=== PATIENT | female | born 1935 | race Caucasian/White ===

== ENCOUNTER 2020-05-07 07:31 | Outpatient (REF) | payer MEDICARE, OTHER, SELFPAY ==
[2020-05-07 08:53] LABS: MANUAL DIFF FLAG NO
[2020-05-07 09:04] LABS: Basophils Absolute Auto 0.1 X10*3/uL (0.0-0.2); Basophils Percent Auto 0.7 % (0-2); Eosinophils Absolute Auto 0.1 X10*3/uL (0.0-0.4); Eosinophils Percent Auto 1.8 % (0-4); Hematocrit 41.1 % (37-47); Hemoglobin 13.2 g/dl (12.0-16.0); Imm Gran Abs Auto 0.02 X10*3/uL (0.00-0.03); Imm Gran Pct Auto 0.3 % (0.0-0.4); Lymphocytes Percent Auto 28.5 % (20-40); Mean Corpuscular HGB Conc 32.1 g/dl (31.0-35.0); Mean Corpuscular Hemoglobin 29.7 pg (27.0-33.0); Mean Corpuscular Volume 92.4 fL (80-98); Monocytes Absolute Auto 0.6 X10*3/uL (0.1-1.2); Neutrophils Absolute Auto 4.3 X10*3/uL (2.0-8.3); Neutrophils Percent Auto 60.7 % (45-73); Platelet Count 228 X10*3/uL (160-400); Red Blood Count 4.45 X10*6/uL (4.20-5.50); Red Cell Distribution Width 14.2 % (11.0-16.0); White Blood Count 7.2 X10*3/uL (4.8-10.8)
[2020-05-07 09:08] LABS: Glucose Urine UA NEG (NEG); Leukocyte Esterase Urine 1+ (NEG); Nitrite Urine NEG (NEG); Urine Blood TRACE (NEG); Urine Ketones NEG (NEG); Urine Protein NEG (NEG-TRACE)
[2020-05-07 09:11] LABS: Appearance Urine CLEAR; Color Urine YELLOW
[2020-05-07 09:25] LABS: Mucus Urine 1+ /LPF; Renal Epithelial Cells Urine 1+ /LPF; Squamous Epithelial Cell Urine 1+ /LPF; WBC Urine 0-2 /HPF (0-4)
[2020-05-07 09:35] LABS: Alanine Aminotransferase 12 U/L (0-31); Albumin Level 4.1 g/dL (3.5-5.0); Alkaline Phosphatase 113 U/L (39-117); Anion Gap 13 (12-20); Aspartate Amino Transferase 17 U/L (5-31); Bilirubin Total 0.6 mg/dL (0.0-1.0); Blood Urea Nitrogen 14 mg/dL (9-16); Calcium 8.7 mg/dL (8.4-10.2); Carbon Dioxide 28 mmol/L (22-29); Chloride 104 mmol/L (96-108); Cholesterol 180 mg/dL; Estimated Glomerular Filt Rate > 60; Glucose Fasting 84 mg/dL (60-99); HDL Cholesterol 53 mg/dL; LDL Cholesterol Calculated 96 mg/dl; Potassium 4.5 mmol/l (3.3-5.1); Sodium 140 mmol/L (135-145); Total Protein 6.8 g/dL (6.5-8.0); Triglycerides 155 mg/dL
[2020-05-07 09:57] LABS: Thyroid Stimulating Hormone 2.42 mIU/mL (0.32-4.0); Vitamin D 25-OH Total 48.8 ng/mL (>30)
== END 2020-05-07 07:32 | disposition home or self-care (01) ==
LOC: HO.LAB 07:31
PROVIDERS: PCP Internal Medicine; Visit Provider Internal Medicine
DX: E78.1 Pure hyperglyceridemia (principal); R35.1 Nocturia; Z85.3 Personal history of malignant neoplasm of breast; E55.9 Vitamin D deficiency, unspecified
CPT/HCPCS: 36415; 80053; 80061; 81001; 81003; 82306; 84443; 85025

== ENCOUNTER 2020-07-20 09:00 | Outpatient (RCR) | payer MEDICARE, OTHER, SELFPAY | END 2020-10-08 15:20 | disposition other institution (70) | LOC: HO.PT 09:00 | PROVIDERS: PCP Internal Medicine; Visit Provider Internal Medicine | DX: H81.10 Benign paroxysmal vertigo, unspecified ear (principal) | CPT/HCPCS: 95992; 97110; 97112; 97162; 97535 ==

== ENCOUNTER → 2020-08-02 08:45 | Outpatient (BNV) | payer MEDICARE, OTHER, SELFPAY | PROVIDERS: PCP Internal Medicine; Visit Provider Internal Medicine Medical Oncology | DX: D05.11 Intraductal carcinoma in situ of right breast (principal) | CPT/HCPCS: 99212; 99213; 99214 ==

== ENCOUNTER 2020-08-02 14:56 | Outpatient (REF) | payer MEDICARE, OTHER, SELFPAY ==
--- NOTE | 2020-08-02 15:03 | US_ITS ---
EXAMINATION: US ABDOMEN COMPLETE CLINICAL INFORMATION: Right upper quadrant pain. COMPARISON: CT abdomen and pelvis 10/09/2019 TECHNIQUE: Real-time imaging of the abdominal viscera. FINDINGS: PANCREAS: Normal. ABDOMINAL AORTA: Proximal and mid abdominal aorta are normal in caliber. The distal abdominal aorta is not well visualized due to bowel gas. INFERIOR VENA CAVA: Visualized portions are normal. LIVER: The liver is normal in size and echotexture. There is a 2.7 x 1.5 x 2.4 cm complex cyst in the right lobe of the liver with multiple septations. This does not appear appreciably changed in size from previous CT scan. No other focal liver lesion is seen. There is no biliary duct dilatation. GALLBLADDER: Normal. The gallbladder is physiologically distended without evidence of stones, sludge, polyps, wall thickening or pericholecystic fluid. COMMON BILE DUCT: Normal in caliber measuring 0.43 cm in diameter. RIGHT KIDNEY: There is mild fullness of the right renal pelvis. No definite hydronephrosis. No renal calculi or focal parenchymal lesions. The kidney measures 10.9 cm in maximum dimension. LEFT KIDNEY: Normal. No hydronephrosis. No renal calculi or focal parenchymal lesions. The kidney measures 10.3 cm in maximum dimension. SPLEEN: There is a small minimally complex cyst with single thin septation measuring 1.4 x 1.5 x 1.5 cm. This is similar to previous CT scan. The spleen measures 8.6 cm in maximum dimension. FREE FLUID: None. US/US abdomen complete IMPRESSION: Stable complex cysts in the liver and spleen. Normal-appearing gallbladder. Limited visualization of the distal abdominal aorta.
== END 2020-08-02 14:57 | disposition home or self-care (01) ==
LOC: HO.US 14:56
PROVIDERS: PCP Internal Medicine; Visit Provider Internal Medicine Medical Oncology
DX: R10.11 Right upper quadrant pain (principal)
CPT/HCPCS: 76700

== ENCOUNTER 2020-09-10 13:36 | Outpatient (REF) | payer MEDICARE, OTHER, SELFPAY ==
--- NOTE | ~2020-09-10 | MM_ITS ---
EXAMINATION: MM DIAGNOSTIC DIGITAL BREAST TOMOSYNTHESIS, LEFT CLINICAL INFORMATION: The probable benign calcifications upper left breast just medial to midline for follow-up. Prior history contralateral right breast cancer 2012. COMPARISON: Mammography: 03/10/2020, 02/26/2020 (BI-RADS 0), 11/26/2018 TECHNIQUE: Digital breast tomosynthesis is performed in both the craniocaudal and mediolateral oblique views along with computer-aided detection (CAD). Synthesized 2D images are generated from the tomosynthesis. Magnification CC, magnification LM FINDINGS: The breasts are heterogeneously dense, which may obscure small masses (ACR BI-RADS breast composition Category c). There is no developing density or interval mass or architectural abnormality. There are scattered round calcifications again seen, some loosely grouped mid 11:00 position. No definite layering noted on current study. There is no increasing calcifications or interval pleomorphic types or ductal distribution. Results are provided to the patient at time of visit by the technologist. MM/MM tomosynthesis diagnostic LT IMPRESSION: Probable benign left breast calcifications stable from prior diagnostic exam. ASSESSMENT: BI-RADS 3: Probably Benign RECOMMENDATION: Diagnostic mammography at time of annual bilateral exam, due in 6 months. This patient's information was entered into a reminder system with a target due date for their next mammogram.
== END 2020-09-10 13:37 | disposition home or self-care (01) ==
LOC: HO.MAMMO 13:36
PROVIDERS: Absent Provider Internal Medicine Medical Oncology; PCP Internal Medicine; Visit Provider Surgery
DX: D05.11 Intraductal carcinoma in situ of right breast (principal)
CPT/HCPCS: 77061; 77065

== ENCOUNTER 2020-09-16 08:05 | Outpatient (REF) | payer MEDICARE, OTHER, SELFPAY ==
--- NOTE | ~2020-09-16 | XR_ITS ---
EXAMINATION: XR PELVIS CLINICAL INFORMATION: Hip pain COMPARISON: Pelvis and right hip radiographs 12/31/2019. TECHNIQUE: AP x2 views of the pelvis are obtained along with lateral view right hip. FINDINGS: There is a right hip prosthesis. Hardware is intact. There is no destructive process or osteolysis. The left hip narrowing medial aspect with mild subchondral sclerosis and acetabular spurring similar to prior exam. There is mild bilateral greater trochanter scarring. The SI joints and pubis show no diastases. There are degenerative changes lower lumbar spine. There is likely chronic calcified granuloma overlying right pelvis similar to prior imaging. XR/XR pelvis 1-2V IMPRESSION: 1. Right hip prosthesis. No osteolysis. 2. Degenerative changes left hip similar to prior exam 2019. 3. Degenerative changes lower lumbar spine.
== END 2020-09-16 08:06 | disposition home or self-care (01) ==
LOC: HO.HOSX 08:05
PROVIDERS: Visit Provider Orthopaedic Surgery
DX: Z47.1 Aftercare following joint replacement surgery (principal); Z96.641 Presence of right artificial hip joint
CPT/HCPCS: 72170; 99212

== ENCOUNTER → 2020-09-29 15:18 | Outpatient (BNVA) | payer MEDICARE, OTHER, SELFPAY | PROVIDERS: PCP Internal Medicine; Visit Provider Surgery | DX: R92.1 Mammographic calcification found on diagnostic imaging of breast (principal); Z85.3 Personal history of malignant neoplasm of breast | CPT/HCPCS: 99212 ==

== ENCOUNTER 2020-12-14 07:41 | Outpatient (REF) | payer MEDICARE, OTHER, SELFPAY ==
[2020-12-14 09:31] LABS: MANUAL DIFF FLAG NO
[2020-12-14 09:40] LABS: Basophils Absolute Auto 0.1 X10*3/uL (0.0-0.2); Eosinophils Absolute Auto 0.1 X10*3/uL (0.0-0.4); Eosinophils Percent Auto 1.6 % (0-4); Hematocrit 43.1 % (37-47); Hemoglobin 13.9 g/dl (12.0-16.0); Imm Gran Abs Auto 0.01 X10*3/uL (0.00-0.03); Imm Gran Pct Auto 0.2 % (0.0-0.4); Lymphocytes Absolute Auto 1.9 X10*3/uL (1.2-4.9); Lymphocytes Percent Auto 31.5 % (20-40); Mean Corpuscular HGB Conc 32.3 g/dl (31.0-35.0); Mean Corpuscular Hemoglobin 30.4 pg (27.0-33.0); Mean Corpuscular Volume 94.3 fL (80-98); Mean Platelet Volume 10.2 fL (9.4-12.3); Monocytes Absolute Auto 0.5 X10*3/uL (0.1-1.2); Monocytes Percent Auto 8.2 % (2-11); Neutrophils Absolute Auto 3.5 X10*3/uL (2.0-8.3); Neutrophils Percent Auto 57.5 % (45-73); Platelet Count 248 X10*3/uL (160-400); Red Blood Count 4.57 X10*6/uL (4.20-5.50); Red Cell Distribution Width 14.1 % (11.0-16.0); White Blood Count 6.1 X10*3/uL (4.8-10.8)
[2020-12-14 09:49] LABS: Estimated Average Glucose 111 mg/dL; Hemoglobin A1c % 5.5 %
[2020-12-14 10:04] LABS: Alanine Aminotransferase 14 U/L (0-31); Albumin Level 4.3 g/dL (3.5-5.0); Alkaline Phosphatase 120 U/L (39-117); Anion Gap 13 (12-20); Aspartate Amino Transferase 20 U/L (5-31); Bilirubin Total 0.9 mg/dL (0.0-1.0); Blood Urea Nitrogen 15 mg/dL (9-16); Calcium 9.2 mg/dL (8.4-10.2); Carbon Dioxide 29 mmol/L (22-29); Chloride 106 mmol/L (96-108); Cholesterol 200 mg/dL; Estimated Glomerular Filt Rate > 60; Glucose Fasting 85 mg/dL (60-99); HDL Cholesterol 58 mg/dL; LDL Cholesterol Calculated 110 mg/dl; Potassium 4.8 mmol/L (3.3-5.1); Sodium 143 mmol/L (135-145); Total Protein 7.2 g/dL (6.5-8.0); Triglycerides 162 mg/dL
[2020-12-14 10:13] LABS: Thyroid Stimulating Hormone 2.15 uIU/mL (0.32-4.0)
[2020-12-14 11:50] LABS: Vitamin B12 458 pg/mL (200-900)
== END 2020-12-14 07:42 | disposition home or self-care (01) ==
LOC: HO.LAB 07:41
PROVIDERS: PCP Internal Medicine; Visit Provider Internal Medicine
DX: J44.9 Chronic obstructive pulmonary disease, unspecified (principal); R20.0 Anesthesia of skin; Z85.3 Personal history of malignant neoplasm of breast
CPT/HCPCS: 36415; 80053; 80061; 82607; 83036; 84443; 85025

== ENCOUNTER 2021-03-10 13:10 | Outpatient (REF) | payer MEDICARE, OTHER, SELFPAY ==
--- NOTE | ~2021-03-10 | MM_ITS ---
EXAMINATION: MM DIAGNOSTIC DIGITAL BREAST TOMOSYNTHESIS, BILATERAL CLINICAL INFORMATION: Left breast calcifications. Right breast screening study. 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 COMPARISON: Mammography: 09/10/2020, 03/10/2020, and studies dating back to 03/05/2014. TECHNIQUE: Digital breast tomosynthesis is performed in both the craniocaudal and mediolateral oblique views along with computer-aided detection (CAD). Synthesized 2D images are generated from the tomosynthesis. Additional spot magnification views of the left breast in craniocaudal and 90 degree mediolateral views performed. FINDINGS: The breasts are heterogeneously dense, which may obscure small masses (ACR BI-RADS breast composition Category c). There is multiplicity and bilaterality of calcifications. The grouping of calcifications in the central aspect of the left breast is seen to be essentially stable. No new abnormal dominant mass or suspicious grouping of calcifications is identified. Recommend 12 month diagnostic study to include spot magnification views of the left breast. Results are provided to the patient at time of visit by the technologist. MM/MM tomosynthesis diagnostic BI IMPRESSION: There are no significant changes from prior study. ASSESSMENT: BI-RADS 3: Probably Benign RECOMMENDATION: Diagnostic mammography at time of next annual exam, due in 12 months. This patient's information was entered into a reminder system with a target due date for their next mammogram.
== END 2021-03-10 13:11 | disposition home or self-care (01) ==
LOC: HO.MAMMO 13:10
PROVIDERS: Visit Provider Internal Medicine
DX: R92.1 Mammographic calcification found on diagnostic imaging of breast (principal); Z86.000 Personal history of in-situ neoplasm of breast
CPT/HCPCS: 77062; 77066

== ENCOUNTER 2021-04-26 07:32 | Outpatient (REF) | payer MEDICARE, OTHER, SELFPAY ==
[2021-04-26 07:47] LABS: MANUAL DIFF FLAG NO
[2021-04-26 07:54] LABS: Basophils Percent Auto 0.6 % (0-2); Eosinophils Absolute Auto 0.1 X10*3/uL (0.0-0.4); Eosinophils Percent Auto 1.8 % (0-4); Hemoglobin 13.9 g/dl (12.0-16.0); Imm Gran Abs Auto 0.02 X10*3/uL (0.00-0.03); Imm Gran Pct Auto 0.3 % (0.0-0.4); Lymphocytes Absolute Auto 2.1 X10*3/uL (1.2-4.9); Lymphocytes Percent Auto 30.5 % (20-40); Mean Corpuscular HGB Conc 33.1 g/dl (31.0-35.0); Mean Corpuscular Volume 93.5 fL (80-98); Mean Platelet Volume 9.4 fL (9.4-12.3); Monocytes Absolute Auto 0.5 X10*3/uL (0.1-1.2); Monocytes Percent Auto 7.5 % (2-11); Neutrophils Absolute Auto 4.1 X10*3/uL (2.0-8.3); Neutrophils Percent Auto 59.3 % (45-73); Platelet Count 219 X10*3/uL (160-400); Red Blood Count 4.49 X10*6/uL (4.20-5.50); Red Cell Distribution Width 13.5 % (11.0-16.0); White Blood Count 6.8 X10*3/uL (4.8-10.8)
[2021-04-26 08:25] LABS: Alanine Aminotransferase 15 U/L (0-31); Albumin Level 4.3 g/dL (3.5-5.0); Alkaline Phosphatase 120 U/L (39-117); Anion Gap 11 (12-20); Aspartate Amino Transferase 20 U/L (5-31); Bilirubin Total 0.8 mg/dL (0.0-1.0); Blood Urea Nitrogen 12 mg/dL (9-16); Calcium 9.2 mg/dL (8.4-10.2); Carbon Dioxide 29 mmol/L (22-29); Chloride 107 mmol/L (96-108); Cholesterol 220 mg/dL; Estimated Glomerular Filt Rate > 60; Glucose Fasting 92 mg/dL (60-99); HDL Cholesterol 62 mg/dL; LDL Cholesterol Calculated 125 mg/dl; Potassium 4.6 mmol/L (3.3-5.1); Sodium 142 mmol/L (135-145); Total Protein 7.2 g/dL (6.5-8.0); Triglycerides 168 mg/dL
[2021-04-26 08:44] LABS: Thyroid Stimulating Hormone 3.02 uIU/mL (0.32-4.0)
== END 2021-04-26 07:33 | disposition home or self-care (01) ==
LOC: HO.LAB 07:32
PROVIDERS: PCP Internal Medicine; Visit Provider Internal Medicine
DX: J44.9 Chronic obstructive pulmonary disease, unspecified (principal); M89.49 Other hypertrophic osteoarthropathy, multiple sites; Z85.3 Personal history of malignant neoplasm of breast
CPT/HCPCS: 36415; 80053; 80061; 84443; 85025

== ENCOUNTER 2021-06-16 13:26 | Outpatient (REF) | payer MEDICARE, OTHER, SELFPAY ==
[2021-06-16 13:47] LABS: MANUAL DIFF FLAG NO
[2021-06-16 14:00] LABS: Basophils Percent Auto 0.5 % (0-2); Eosinophils Absolute Auto 0.1 X10*3/uL (0.0-0.4); Eosinophils Percent Auto 0.6 % (0-4); Hematocrit 42.1 % (37.0-47.0); Hemoglobin 13.7 g/dl (12.0-16.0); Imm Gran Abs Auto 0.01 X10*3/uL (0.00-0.03); Imm Gran Pct Auto 0.1 % (0.0-0.4); Lymphocytes Percent Auto 25.7 % (20-40); Mean Corpuscular HGB Conc 32.5 g/dl (31.0-35.0); Mean Corpuscular Hemoglobin 30.3 pg (27.0-33.0); Mean Corpuscular Volume 93.1 fL (80.0-98.0); Mean Platelet Volume 9.6 fL (9.4-12.3); Monocytes Absolute Auto 0.5 X10*3/uL (0.1-1.2); Monocytes Percent Auto 6.3 % (2-11); Neutrophils Absolute Auto 5.2 x10*3/uL (2.0-8.3); Neutrophils Percent Auto 66.8 % (45-73); Platelet Count 223 X10*3/uL (160-400); Red Blood Count 4.52 X10*6/uL (4.20-5.50); Red Cell Distribution Width 13.5 % (11.0-16.0); White Blood Count 7.8 X10*3/uL (4.8-10.8)
[2021-06-16 14:30] LABS: Alanine Aminotransferase 18 U/L (0-31); Albumin Level 4.2 g/dL (3.5-5.0); Alkaline Phosphatase 117 U/L (39-117); Anion Gap 11 (12-20); Aspartate Amino Transferase 23 U/L (5-31); Bilirubin Total 0.6 mg/dL (0.0-1.0); Blood Urea Nitrogen 16 mg/dL (9-16); Calcium 9.2 mg/dL (8.4-10.2); Carbon Dioxide 29 mmol/L (22-29); Chloride 105 mmol/L (96-108); Cholesterol 210 mg/dL; Estimated Glomerular Filt Rate 58; Glucose Random 177 mg/dL (60-115); HDL Cholesterol 52 mg/dL; LDL Cholesterol Calculated 123 mg/dl; Potassium 4.5 mmol/L (3.3-5.1); Sodium 140 mmol/L (135-145); Total Protein 7.1 g/dL (6.5-8.0); Triglycerides 178 mg/dL
[2021-06-16 14:45] LABS: Thyroid Stimulating Hormone 1.89 uIU/mL (0.32-4.0); Vitamin D 25-OH Total 35.2 ng/mL (>30)
[2021-06-16 14:54] LABS: Vitamin B12 422 pg/mL (200-900)
== END 2021-06-16 13:27 | disposition home or self-care (01) ==
LOC: HO.LAB 13:26
PROVIDERS: PCP Internal Medicine; Visit Provider Internal Medicine
DX: M89.49 Other hypertrophic osteoarthropathy, multiple sites (principal); E78.2 Mixed hyperlipidemia; R41.3 Other amnesia; E55.9 Vitamin D deficiency, unspecified
CPT/HCPCS: 36415; 80053; 80061; 82306; 82607; 84443; 85025

== ENCOUNTER 2021-06-28 08:30 | Outpatient (REF) | payer MEDICARE, OTHER, SELFPAY ==
[2021-06-28 09:33] LABS: Estimated Average Glucose 111 mg/dL; Hemoglobin A1c % 5.5 %
[2021-06-28 09:54] LABS: Glucose Fasting 91 mg/dL (60-99)
== END 2021-06-28 08:31 | disposition home or self-care (01) ==
LOC: HO.LAB 08:30
PROVIDERS: PCP Internal Medicine; Visit Provider Internal Medicine
DX: R73.01 Impaired fasting glucose (principal)
CPT/HCPCS: 36415; 82947; 83036

== ENCOUNTER → 2021-10-04 08:39 | Outpatient (BNVA) | payer MEDICARE, OTHER, SELFPAY | PROVIDERS: PCP Internal Medicine; Visit Provider Surgery | DX: Z85.3 Personal history of malignant neoplasm of breast (principal) | CPT/HCPCS: 99212 ==

== ENCOUNTER 2021-12-19 09:58 | Outpatient (REF) | payer MEDICARE, OTHER, SELFPAY ==
[2021-12-19 11:30] LABS: Appearance Urine CLEAR; Color Urine STRAW; Glucose Urine UA NEG (NEG); Leukocyte Esterase Urine 1+ (NEG); Nitrite Urine NEG (NEG); Urine Blood NEG (NEG); Urine Ketones NEG (NEG); Urine Protein NEG (NEG-TRACE)
[2021-12-19 11:49] LABS: Vitamin B12 453 pg/mL (200-900)
[2021-12-19 11:51] LABS: Alanine Aminotransferase 20 U/L (0-31); Albumin Level 4.3 g/dL (3.5-5.0); Alkaline Phosphatase 109 U/L (39-117); Anion Gap 11 (12-20); Aspartate Amino Transferase 22 U/L (5-31); Bilirubin Total 0.4 mg/dL (0.0-1.0); Blood Urea Nitrogen 17 mg/dL (9-16); Calcium 9.9 mg/dL (8.4-10.2); Carbon Dioxide 29 mmol/L (22-29); Chloride 105 mmol/L (96-108); Estimated Glomerular Filt Rate > 60; Glucose Random 89 mg/dL (60-115); Potassium 4.9 mmol/L (3.3-5.1); Sodium 140 mmol/L (135-145); Total Protein 7.2 g/dL (6.5-8.0)
[2021-12-19 11:54] LABS: RBC Urine 0 /HPF (0); Squamous Epithelial Cell Urine 2+ /LPF
[2021-12-19 11:59] LABS: Free T4 (Free Thyroxine) 0.98 ng/dL (0.71-1.85)
== END 2021-12-19 09:59 | disposition home or self-care (01) ==
LOC: HO.LAB 09:58
PROVIDERS: PCP Internal Medicine; Visit Provider Internal Medicine
DX: R20.0 Anesthesia of skin (principal); R20.2 Paresthesia of skin; J44.9 Chronic obstructive pulmonary disease, unspecified; R41.3 Other amnesia; E78.2 Mixed hyperlipidemia; R35.1 Nocturia
CPT/HCPCS: 36415; 80053; 81001; 82607; 84439

== ENCOUNTER 2022-03-10 12:08 | Outpatient (REF) | payer MEDICARE, OTHER, SELFPAY ==
--- NOTE | ~2022-03-10 | MM_ITS ---
EXAMINATION: MM DIAGNOSTIC DIGITAL MAMMOGRAPHY, BILATERAL CLINICAL INFORMATION: Due for yearly. Also follow-up probable benign left breast calcifications mid upper breast. Previous history DCIS right breast status post lumpectomy, 2012 COMPARISON: Mammography: 03/10/2021, 09/10/2020, 03/10/2020, 02/26/2020 (BI-RADS 0), 11/26/2018 TECHNIQUE: Digital mammography is performed in craniocaudal and mediolateral oblique views along with computer-aided detection (CAD). Additional magnification left CC x2 and magnification left ML x2 views are obtained. FINDINGS: The breasts are heterogeneously dense, which may obscure small masses (ACR BI-RADS breast composition Category c). Breast tissue composition borders on extremely dense in the anterior breasts. Parenchymal pattern is similar to prior studies. No developing density or interval mass or architectural abnormality. There are scattered bilateral round, coarse, and ductal secretory calcifications again seen. The calcifications mid upper left breast for follow-up appear stable from prior studies and likely diagnostic studies and without significant change from 2019. There are considered to be benign. Results are provided to the patient at time of visit by the technologist. MM/MM diagnostic mammo BI IMPRESSION: -No mammographic evidence of malignancy. -Left breast calcifications for follow-up are stable from prior exams and now considered to be benign. ASSESSMENT: BI-RADS 2: Benign RECOMMENDATION: Routine annual mammography screening. This patient's information was entered into a reminder system with a target due date for their next mammogram.
== END 2022-03-10 12:09 | disposition home or self-care (01) ==
LOC: HO.MAMMO 12:08
PROVIDERS: PCP Internal Medicine; Visit Provider Internal Medicine
DX: R92.1 Mammographic calcification found on diagnostic imaging of breast (principal)
CPT/HCPCS: 77062; 77066

== ENCOUNTER 2022-06-12 11:24 | Outpatient (REF) | payer MEDICARE, OTHER, SELFPAY ==
--- NOTE | ~2022-06-12 | XR_ITS ---
EXAMINATION: XR LUMBOSACRAL SPINE CLINICAL INFORMATION: Low back pain. COMPARISON: CT abdomen and pelvis 10/09/2019. TECHNIQUE: Three views of the lumbosacral spine. FINDINGS: Mild degenerative changes are present throughout the spine. Disc space narrowing is most marked at L2-L3 and L4-L5. There is grade 1 anterolisthesis of L4 upon L5. When comparison is made to the 10/09/2019 exam, there's been no significant interval change in appearances. No bony destructive lesions are seen. XR/XR lumbar spine 2-3V IMPRESSION: Degenerative changes in the spine with grade 1 anterolisthesis L4 upon L5.
[2022-06-12 11:58] LABS: MANUAL DIFF FLAG NO
[2022-06-12 12:24] LABS: Basophils Absolute Auto 0.1 X10*3/uL (0.0-0.2); Basophils Percent Auto 0.6 % (0-2); Eosinophils Percent Auto 0.5 % (0-4); Hematocrit 43.4 % (37.0-47.0); Hemoglobin 14.4 g/dl (12.0-16.0); Imm Gran Abs Auto 0.03 X10*3/uL (0.00-0.03); Imm Gran Pct Auto 0.4 % (0.0-0.4); Mean Corpuscular HGB Conc 33.2 g/dl (31.0-35.0); Mean Corpuscular Hemoglobin 31.4 pg (27.0-33.0); Mean Corpuscular Volume 94.8 fL (80.0-98.0); Mean Platelet Volume 10.2 fL (9.4-12.3); Monocytes Absolute Auto 0.5 X10*3/uL (0.1-1.2); Monocytes Percent Auto 6.1 % (2-11); Neutrophils Absolute Auto 5.6 x10*3/uL (2.0-8.3); Neutrophils Percent Auto 68.4 % (45-73); Platelet Count 234 X10*3/uL (160-400); Red Blood Count 4.58 X10*6/uL (4.20-5.50); Red Cell Distribution Width 13.4 % (11.0-16.0); White Blood Count 8.2 X10*3/uL (4.8-10.8)
[2022-06-12 12:56] LABS: Alanine Aminotransferase 20 U/L (0-31); Albumin Level 4.6 g/dL (3.5-5.0); Alkaline Phosphatase 101 U/L (39-117); Anion Gap 16 (12-20); Aspartate Amino Transferase 26 U/L (5-31); Bilirubin Total 0.5 mg/dL (0.0-1.0); Blood Urea Nitrogen 15 mg/dL (9-16); Calcium 9.8 mg/dL (8.4-10.2); Carbon Dioxide 26 mmol/L (22-29); Chloride 104 mmol/L (96-108); Cholesterol 205 mg/dL; Estimated Glomerular Filt Rate > 60; Glucose Random 94 mg/dL (60-115); HDL Cholesterol 65 mg/dL; LDL Cholesterol Calculated 113 mg/dl; Potassium 4.6 mmol/L (3.3-5.1); Sodium 141 mmol/L (135-145); Total Protein 7.5 g/dL (6.5-8.0); Triglycerides 137 mg/dL
[2022-06-12 13:19] LABS: Thyroid Stimulating Hormone 1.84 uIU/mL (0.32-4.0)
== END 2022-06-12 11:25 | disposition home or self-care (01) ==
LOC: HO.XRAY 11:24
PROVIDERS: PCP Internal Medicine; Visit Provider Internal Medicine
DX: G30.0 Alzheimer's disease with early onset (principal); F02.A0 Dementia in other diseases classified elsewhere, mild, without behavioral disturbance, psychotic disturbance, mood disturbance, and anxiety; E78.00 Pure hypercholesterolemia, unspecified; J44.9 Chronic obstructive pulmonary disease, unspecified; G62.9 Polyneuropathy, unspecified; M54.50 Low back pain, unspecified
CPT/HCPCS: 36415; 72100; 80053; 80061; 84443; 85025

== ENCOUNTER → 2022-10-03 08:54 | Outpatient (BNVA) | payer MEDICARE, OTHER, SELFPAY | PROVIDERS: PCP Internal Medicine; Referring Provider Internal Medicine; Visit Provider Surgery | DX: D05.11 Intraductal carcinoma in situ of right breast (principal) | CPT/HCPCS: 99212 ==

== ENCOUNTER 2022-12-21 06:48 | Outpatient (REF) | payer MEDICARE, OTHER, SELFPAY ==
[2022-12-21 07:10] LABS: MANUAL DIFF FLAG NO
[2022-12-21 07:57] LABS: Basophils Absolute Auto 0.1 X10*3/uL (0.0-0.2); Basophils Percent Auto 0.8 % (0-2); Eosinophils Absolute Auto 0.1 X10*3/uL (0.0-0.4); Eosinophils Percent Auto 1.8 % (0-4); Hemoglobin 14.7 g/dl (12.0-16.0); Imm Gran Abs Auto 0.01 X10*3/uL (0.00-0.03); Imm Gran Pct Auto 0.2 % (0.0-0.4); Lymphocytes Absolute Auto 2.1 X10*3/uL (1.2-4.9); Lymphocytes Percent Auto 32.1 % (20-40); Mean Corpuscular Hemoglobin 30.2 pg (27.0-33.0); Mean Corpuscular Volume 94.7 fL (80.0-98.0); Mean Platelet Volume 10.5 fL (9.4-12.3); Monocytes Absolute Auto 0.5 X10*3/uL (0.1-1.2); Monocytes Percent Auto 7.1 % (2-11); Neutrophils Absolute Auto 3.9 x10*3/uL (2.0-8.3); Platelet Count 227 X10*3/uL (160-400); Red Blood Count 4.86 X10*6/uL (4.20-5.50); Red Cell Distribution Width 13.7 % (11.0-16.0); White Blood Count 6.7 X10*3/uL (4.8-10.8)
[2022-12-21 08:10] LABS: Estimated Average Glucose 108 mg/dL; Hemoglobin A1c % 5.4 %
[2022-12-21 08:32] LABS: Alanine Aminotransferase 20 U/L (0-31); Albumin Level 4.4 g/dL (3.5-5.0); Alkaline Phosphatase 105 U/L (39-117); Anion Gap 14 (12-20); Aspartate Amino Transferase 24 U/L (5-31); Blood Urea Nitrogen 15 mg/dL (9-16); Calcium 9.7 mg/dL (8.4-10.2); Carbon Dioxide 29 mmol/L (22-29); Chloride 106 mmol/L (96-108); Cholesterol 207 mg/dL; Estimated Glomerular Filt Rate 59; Glucose Random 93 mg/dL (60-115); HDL Cholesterol 66 mg/dL; LDL Cholesterol Calculated 112 mg/dl; Potassium 4.4 mmol/L (3.3-5.1); Sodium 145 mmol/L (135-145); Total Protein 7.2 g/dL (6.5-8.0); Triglycerides 148 mg/dL
[2022-12-21 08:57] LABS: Thyroid Stimulating Hormone 3.03 uIU/mL (0.32-4.0); Vitamin B12 644 pg/mL (200-900)
== END 2022-12-21 06:49 | disposition home or self-care (01) ==
LOC: HO.LAB 06:48
PROVIDERS: PCP Internal Medicine; Visit Provider Internal Medicine
DX: F03.B0 Unspecified dementia, moderate, without behavioral disturbance, psychotic disturbance, mood disturbance, and anxiety (principal); E78.00 Pure hypercholesterolemia, unspecified; R73.01 Impaired fasting glucose; J44.9 Chronic obstructive pulmonary disease, unspecified
CPT/HCPCS: 36415; 80053; 80061; 82607; 83036; 84439; 84443; 85025

== ENCOUNTER 2023-03-13 08:26 | Outpatient (REF) | payer MEDICARE, OTHER, SELFPAY ==
--- NOTE | ~2023-03-13 | MM_ITS ---
EXAMINATION: MM SCREENING DIGITAL BREAST TOMOSYNTHESIS, BILATERAL CLINICAL INFORMATION: Screening. Asymptomatic. COMPARISON: Mammography: This study is compared with prior exams dating back to TECHNIQUE: Digital breast tomosynthesis is performed in both the craniocaudal and mediolateral oblique views along with computer-aided detection (CAD). Synthesized 2D images are generated from the tomosynthesis. FINDINGS: The breasts are heterogeneously dense, which may obscure small masses (ACR BI-RADS breast composition Category c). There are no significant masses, abnormal calcifications, or other abnormalities. Few, bilateral, benign calcifications are present. MM/MM tomosynthesis screening BI IMPRESSION: No mammographic evidence of malignancy. ASSESSMENT: BI-RADS BI-RADS 2 - Benign Findings RECOMMENDATION: Routine annual mammography screening. 1 year F/U This examination should not preclude the clinical evaluation of a suspicious palpable abnormality. This patient's information was entered into a reminder system with a target due date for their next mammogram.
== END 2023-03-13 08:27 | disposition home or self-care (01) ==
LOC: HO.MAMMO 08:26
PROVIDERS: PCP Internal Medicine; Visit Provider Internal Medicine
DX: Z12.31 Encounter for screening mammogram for malignant neoplasm of breast (principal)
CPT/HCPCS: 77063; 77067

== ENCOUNTER → 2023-03-13 08:45 | Outpatient (BNV) | payer MEDICARE, OTHER, SELFPAY | PROVIDERS: PCP Internal Medicine; Visit Provider Radiology Diagnostic Radiology | DX: Z12.31 Encounter for screening mammogram for malignant neoplasm of breast (principal) | CPT/HCPCS: 77063; 77067 ==

== ENCOUNTER 2023-09-20 07:56 | Outpatient (REF) | payer MEDICARE, OTHER, SELFPAY ==
--- NOTE | ~2023-09-20 | CT_ITS ---
EXAMINATION: CT ABDOMEN AND PELVIS WITH CONTRAST CLINICAL INFORMATION: Weight loss COMPARISON: Ultrasound abdomen from 08/02/2020, CT abdomen pelvis from 10/09/2019 TECHNIQUE: Multidetector volumetric images were obtained from the superior aspect of the liver through the pubic symphysis following administration 85 mL of Omnipaque 350 intravenous contrast. Sagittal and coronal reformatted images were obtained on the technologist's workstation. Oral contrast: No This CT examination was performed using dose optimization techniques as appropriate, variously including the following: *Automated exposure control *Adjustment of mA and/or kV according to patient size (this includes techniques or standardized protocols for targeted exams where dose is matched to indication/reason for exam; i.e. extremities or head) *Use of iterative reconstruction technique DLP: 376 mGy-cm FINDINGS: LUNG BASES: Emphysematous changes. Bibasilar atelectasis. No pneumothorax. No large pleural effusion. LIVER, GALLBLADDER, AND BILIARY TREE: The liver is normal in size, shape, and attenuation. Redemonstration of multiple hepatic cystic foci the largest in the right hepatic lobe measuring up to 2.3 cm. No focal hepatic lesion or biliary ductal dilatation is present. The gallbladder is unremarkable with no evidence of radiopaque gallstones, gallbladder wall thickening, or obvious pericholecystic inflammatory changes. PANCREAS: Unremarkable. SPLEEN: Cystic focus in the anterior splenic interpolar/upper pole region measuring 2.1 cm. ADRENAL GLANDS: Unremarkable. KIDNEYS AND URETERS: The kidneys are normal in size, shape, and attenuation. No hydronephrosis, hydroureter, or calculi seen. No perinephric stranding. BLADDER: Unremarkable though evaluation is limited secondary to streak artifact at this level. GASTROINTESTINAL TRACT: Small hiatal hernia. Colonic diverticulosis without acute diverticulitis. Questionable eccentric wall thickening involving the distal descending colon (series 6, image 38) which may be accentuated secondary to underdistention though correlation with recent colonoscopy if available. The small and large bowel are unremarkable. The appendix is unremarkable. ABDOMINAL WALL: Small fat filled bilateral inguinal hernias. LYMPH NODES: No enlarged lymph nodes per size criteria. VASCULAR: Abdominal aorta is not aneurysmal. Circumaortic left renal vein. PELVIC VISCERA: Retroverted uterus. Hypodense focus within the endometrial canal measuring slightly higher than fluid attenuation measuring approximately 1.7 x 1.7 x 2.6 cm.. This can be further evaluated with dedicated pelvic ultrasound and/or MRI. Bilateral adnexal/ovarian hypodense foci the largest measuring up to 1.6 cm. Findings are overwhelmingly likely to represent a benign functional cyst and no follow-up imaging recommended. OSSEOUS STRUCTURES: Multilevel degenerative changes of the thoracolumbar lumbosacral spine. Grade 1 anterolisthesis of L3 on L4 and L4 and L5. Grade 1 retrolisthesis of L2 on L3. Right hip arthroplasty grossly intact with streak artifact at this level. Soft tissue granuloma right gluteal soft tissues. CT/CT abdomen pelvis w IV con IMPRESSION: 1. No acute process of the abdomen or pelvis identified. 2. Redemonstration of multiple hepatic cystic foci the largest in the right hepatic lobe measuring up to 2.3 cm. 3. Cystic focus in the anterior splenic interpolar/upper pole region measuring 2.1 cm. 4. Colonic diverticulosis without acute diverticulitis. Questionable eccentric wall thickening involving the distal descending colon which may be accentuated secondary to underdistention though correlation with recent colonoscopy if available. 5. Hypodense focus within the endometrial canal measuring slightly higher than fluid attenuation measuring approximately 1.7 x 1.7 x 2.6 cm. This can be further evaluated with dedicated pelvic ultrasound and/or MRI. 6. Bilateral adnexal/ovarian hypodense foci the largest measuring up to 1.6 cm. Findings are overwhelmingly likely to represent a benign functional cyst and no follow-up imaging recommended.
[2023-09-20] MEDS: iohexoL 350 MG/ML 100 ML INFUS..BTL IV (10:38)
[2023-09-20] MEDS: Barium Sulfate Oral (Vanilla) 450 ML ORAL.SUSP 900 ML PO (10:39)
[2023-09-21 08:17] LABS: Creatinine POC 0.9 mg/dL (0.5-1.4); GFR POC > 60
== END 2023-09-20 07:57 | disposition home or self-care (01) ==
LOC: HO.CT 07:56
PROVIDERS: PCP Internal Medicine; Visit Provider Internal Medicine
DX: R63.4 Abnormal weight loss (principal)
CPT/HCPCS: 74177; 82565; Q9967

== ENCOUNTER 2023-10-04 14:02 | Outpatient (REF) | payer MEDICARE, OTHER, SELFPAY | END 2023-10-04 14:03 | disposition home or self-care (01) | LOC: HO.LNP 14:02 | PROVIDERS: Visit Provider Surgery | DX: D22.5 Melanocytic nevi of trunk (principal); D05.11 Intraductal carcinoma in situ of right breast | CPT/HCPCS: 11401; 88304; 88305; 99212 ==

== ENCOUNTER 2023-10-04 14:02 | Outpatient (AMB) | payer MEDICARE, OTHER, SELFPAY ==
--- NOTE | 2023-10-04 14:18 | MHC.OFFVIS ---
Intake Vital Signs 10/04/23 14:20 Height 5 ft 3 in Weight 132 lb BMI 23.4 BP 149/67 H Blood Pressure Location Lt brachial Position Sitting Pulse 81 Intake Visit Reasons: yearly breast examination Intake Note: Patient is seen in office for yearly breast exam. Patient c/o: denies any concern or changes since last visit mm: 03/13/23 Rn Wound Required: No Accompanied by: Family/Other Allergies cortisone Allergy (Unknown, Uncoded 10/04/23 14:19) facial swelling ENVIRONMENTAL Allergy (Unknown, Uncoded 10/04/23 14:19) SNEEZING,SNIFFLING HPI HPI Comments History of Present Illness Details Mili Rubin is an 88-year-old female patient of Dr. Anderson and former patient of Dr. Alberto presenting for a yearly follow-up breast examination.? She was diagnosed with ductal carcinoma in situ of the right breast and underwent a right breast lumpectomy in October 2012. She underwent a radial ellipse mastopexy involving the upper outer quadrant of the right breast.? She completed 5 years of tamoxifen in January 2018 and noted some hair loss due to the tamoxifen.? She reports an enlarging black skin lesion on the left breast the mid axillary line which becomes irritated when scratched. She would like to have this lesion removed. Her latest mammogram of 03/13/2023 revealed no mammographic evidence of malignancy (BI-RADS 2). Routine mammogram recommended in 1 year. [facility], LAT[facility] Medical History History of breast cancer COPD (chronic obstructive pulmonary disease) Vertigo Surgical History History of local excision of skin lesion (12/29/11) History of colonoscopy History of right breast biopsy (11/21/12) History of excision of lesion (12/04/08) History of hemorrhoidectomy History of lumpectomy (01/03/13) History of back surgery (02/2015) History of hip replacement (08/2019) Family History Sister History of breast cancer, Onset Age: 64 Maternal Aunt History of lung cancer Social History Household Members: [facility] Are you a primary manager intensive care to a significant other at home: No Do you presently have visiting nurse or other home services: No Alcohol intake: never Patient Tobacco Use Status: Never used Tobacco service: No Current occupational status: retired Review of Systems Const All systems reviewed & are unremarkable except as noted in HPI and below Card Denies chest pain, Denies palpitations and Denies dyspnea Resp Denies chest congestion, Denies cough, Denies dyspnea and Denies wheezing GI Denies abdominal pain, Denies bloating and Denies constipation Denies nipple discharge Musc Reports no additional complaints Skin/Breast Details: Skin lesion left breast as noted above in HPI Denies breast swelling, Denies breast skin changes, Denies breast pain, Denies breast mass, Denies change in breast shape and Denies nipple discharge Endo Denies palpitations Earl/Lymph Denies lymphadenopathy Aller/Immun Denies wheezing Physical Exam Vital Signs: Last Vital Signs Pulse 81 10/04/23 14:20 BP 149/67 H 10/04/23 14:20 BMI result Body Mass Index 23.4 Const General: cooperative, healthy appearing, comfortable and no acute distress Neck Neck: Yes no lymphadenopathy, Yes trachea midline, Yes supple and Yes no JVD Chest Other: Right breast with a well-healed radial incision in the 1 o'clock position with no new skin change, nipple retraction, nipple discharge, palpable mass, or enlarged lymph nodes. Left breast reveals no palpable mass, skin change, nipple retraction, nipple discharge, enlarged lymph nodes. Skin lesion as noted below. Chest/axillae images: 1. Site of melanotic lesion lower inner quadrant left breast 2. Incision right breast Resp Effort & Inspection: normal respiratory effort, no cough, no stridor and not tachypneic Cardio Jugular venous distension: no JVD GI Inspection: Yes normal to inspection Skin General skin exam: no rashes or lesions noted Extrem General: Yes no clubbing, cyanosis or edema Office Procedures Excision Details: Preoperative diagnosis: Melanotic lesion left breast Postoperative diagnosis: Same Procedure: Excision of melanotic lesion left breast Surgeon: Norm Coleman MD Sales Development Director: None Anesthesia: Lidocaine 1% with epinephrine Indications for procedure: 88-year-old female patient with a prior history of breast cancer found to have a melanotic lesion of the left breast lower inner quadrant. Lesion is asymptomatic but appears to be increasing in size. Operative findings: 0.6 cm hard crusted black lesion left breast lower inner quadrant Specimen: Melanotic lesion left breast Estimated blood loss: Less than 1 mL Complications: None Procedure details: After assuring informed consent and confirming the site of surgery in the lower inner quadrant of the left breast, skin was prepped with Betadine and draped in a sterile fashion. Local anesthesia was infiltrated below the lesion. Scalpel was then used to excise the lesion off the dermis and epidermis. Pressure was held to maintain hemostasis. Wounds were then dressed with 2 x 2 gauze and Tegaderm. The patient tolerated the procedure well. [id number]-cakdt/arms/legs 0.6-1cm Procedure code (CPT) selection complete Assessment & Plan Assessment & Plan (1) Ductal carcinoma in situ (DCIS) of right breast: Code(s): D05.11 - Intraductal carcinoma in situ of right breast Plan: 88-year-old female patient returning for a 1 year follow-up examination after undergoing right breast lumpectomy in October 2012 for ductal carcinoma in situ. Examination today reveals no evidence of recurrent disease and her most recent bilateral mammograms 03/13/2023 revealed no mammographic evidence of malignancy is identified (BI-RADS 2). A 1 year follow-up mammogram is recommended. I recommended follow-up examination 1 year. She is welcome to call sooner for any new concerns. Orders: Orders Surgical Today D22.5 - Melanocytic nevi of trunk Coding Level of Care Code Est Pt Level 3 (08421) Diagnoses Ductal carcinoma in situ (DCIS) of right breast D05.11 CPT Codes Trunk/Arms/Legs - CPT: 33239-mnkcf/arms/legs 0.6-1cm ([id number])
[2023-10-04 14:20] VITALS: BP 149/67; PULSE 81; BMI 23.4
== END 2023-10-04 14:47 | disposition home or self-care (01) ==
PROVIDERS: PCP Internal Medicine; Visit Provider Surgery
DX: D05.11 Intraductal carcinoma in situ of right breast (principal); L82.1 Other seborrheic keratosis
CPT/HCPCS: 11401; 99213

== ENCOUNTER 2023-11-06 07:39 | Outpatient (REF) | payer MEDICARE, OTHER, SELFPAY ==
--- NOTE | ~2023-11-06 | US_ITS ---
EXAMINATION: ULTRASOUND PELVIC, COMPLETE CLINICAL INFORMATION: Abnormal CT findings. COMPARISON: CT pelvis 09/20/2023. TECHNIQUE: Pelvic ultrasound was performed using transvaginal and transabdominal technique without spectral doppler. FINDINGS: Retroverted uterus measuring 6.3 x 2.6 x 4.4 cm. The endometrial stripe is thickened measuring 9 mm and multicystic in appearance. The right ovary is not seen. The left ovary measures 1.9 x 1.0 x 1.4 cm. The left ovary appears normal. No free fluid. US/US pelvic and transvaginal IMPRESSION: Thickened and cystic endometrium. Recommend endometrial biopsy.
== END 2023-11-06 07:40 | disposition home or self-care (01) ==
LOC: HO.US 07:39
PROVIDERS: PCP Internal Medicine; Visit Provider Internal Medicine
DX: R93.89 Abnormal findings on diagnostic imaging of other specified body structures (principal)
CPT/HCPCS: 76830; 76856

== ENCOUNTER 2024-01-01 08:11 | Outpatient (REF) | payer MEDICARE, OTHER, SELFPAY ==
[2024-01-03 11:53] LABS: CA-125 10 U/mL (<35)
== END 2024-01-01 08:12 | disposition home or self-care (01) ==
LOC: HO.LAB 08:11
PROVIDERS: PCP Internal Medicine; Visit Provider Obstetrics & Gynecology
DX: Z13.89 Encounter for screening for other disorder (principal)
CPT/HCPCS: 36415; 86304

== ENCOUNTER 2024-01-01 08:11 | Outpatient (AMB) | payer MEDICARE, OTHER, SELFPAY ==
[2024-01-01 08:19] VITALS: BP 122/68; BMI 21.3
--- NOTE | 2024-01-01 08:19 | MHC.OFFVIS ---
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 No history of vaginal bleeding, no other complaints. On 09/22 CT scan was done regarding weight loss the pelvic viscera part of it showed the following: PELVIC VISCERA: Retroverted uterus. Hypodense focus within the endometrial canal measuring slightly higher than fluid attenuation measuring approximately 1.7 x 1.7 x 2.6 cm.. This can be further evaluated with dedicated pelvic ultrasound and/or MRI. Bilateral adnexal/ovarian hypodense foci the largest measuring up to 1.6 cm. Findings are overwhelmingly likely to represent a benign functional cyst and no follow-up imaging recommended. On 11/06/2023 pelvic ultrasound showed the following: Retroverted uterus measuring 6.3 x 2.6 x 4.4 cm. The endometrial stripe is thickened measuring 9 mm and multicystic in appearance. The right ovary is not seen. The left ovary measures 1.9 x 1.0 x 1.4 cm. The left ovary appears normal. No free fluid. FOR[facility]LY [facility], LAT[facility] Medical History History of breast cancer COPD (chronic obstructive pulmonary disease) Vertigo Surgical History History of local excision of skin lesion (12/29/11) History of colonoscopy History of right breast biopsy (11/21/12) History of excision of lesion (12/04/08) History of hemorrhoidectomy History of lumpectomy (01/03/13) History of back surgery (02/2015) History of hip replacement (08/2019) Family History Sister History of breast cancer, Onset Age: 64 Maternal Aunt History of lung cancer Social History Household Members: Spouse Housing: Condominium Are you a primary residential care officer to a significant other at home: No Do you presently have visiting nurse or other home services: No Alcohol intake: never Patient Tobacco Use Status: Never used Tobacco service: No Current occupational status: retired Female Reproductive History Menstrual Total pregnancies: 0 Review of Systems Const All systems reviewed & are unremarkable except as noted in HPI and below Physical Exam Vital Signs: Last Vital Signs BP 122/68 01/01/24 08:19 BMI result Body Mass Index 21.3 General: Yes no CVA tenderness External Female Exam: normal external appearance and normal appearance of the urethra Speculum Exam - Vagina: normal appearance of the vagina, normal palpation, no lesions and no masses Speculum Exam - Cervix: normal appearance of the cervix, normal palpation, no lesions, no masses and nontender Bimanual exam- vagina & uterus: normal bimanual exam, normal palpation, uterine size normal, normal palpation, uterine shape normal, No Cervical tenderness present and non-tender Bimanual Exam- Adnexa, other: normal adnexae Back/Spine/Pelvis Back: no CVA tenderness Office Procedures Endometrial Biopsy Details: The patient was counseled regarding the indication and benefits of endometrial sampling to rule out endometrial pathology including not limited to endometrial hyperplasia or endometrial cancer and others; The alternatives (Either do nothing vs. hysteroscopy D&C) & the risks were discussed with the patient including but not limited: pain, uterine perforation, bleeding, infection, possible injury to bladder, bowel, ureter, possible need for blood transfusion with all its possible risks. The patient verbalized understanding all questions answered and signed consent. The patient was placed into the dorsal lithotomy position; a speculum was inserted in the vagina. Using aseptic technique for the procedure, the cervix was cleansed with Betadine. The anterior lip of the cervix was grasped with a single tooth tenaculum. The uterus was sounded to 6.5 cm with a 4 mm Pipelle was used. Tissues samples were obtained and placed in formalin, in a patient labeled container and sent to the pathology department. At the end of the procedure, there was minimal bleeding noted The patient tolerated the procedure well and was discharged in good condition with the following instructions: Nothing in the vagina until the bleeding stops. No sex until the bleeding stops, to call if any of the following occurs: fever (>100.4), flu-like symptoms, abdominal pain, heavy bleeding, four smelling vaginal discharge. The patient was instructed to schedule a Follow up appointment in 2 weeks to discuss pathology results of the biopsy and treatment options. This note was generated with a voice recognition program. Some errors may have been overlooked during the review of this note. Sometimes these errors may affect the content or meaning of a given sentence. [id number] Biopsy Assessment & Plan Assessment & Plan (1) Endometrial thickening on ultrasound: Code(s): R93.89 - Abnormal findings on diagnostic imaging of other specified body structures Category: Medical Plan: Discussed with the patient endometrial thickness above 4 mm with cystic appearance in menopause , the differential diagnosis of a thickened endometrium includes but not limited to endometrial polyp, hyperplasia or carcinoma. Explained to the patient that endometrial each thickness is less predictive of endometrial neoplasia in asymptomatic patients, i.e. those without postmenopausal uterine bleeding. The sensitivity and specificity for detecting endometrial carcinoma at an endometrial thickness of >= 5mm was 83 and 72 percent, respectively; this is lower than in patients with bleeding. Studies have shown that postmenopausal patients without uterine bleeding who had an endometrial thickness >11 mm had an endometrial carcinoma risk of 6.7 percent; this risk is similar to postmenopausal patients with bleeding and an endometrial thickness >5 mm. Recommended endometrial sampling to rule endometrial pathology via either office endometrial biopsy or diagnostic hysteroscopy/D&C with possible polypectomy/myomectomy. All pros and cons, risks and benefits of each approach were discussed with the patient, the patient decided to proceed with endometrial biopsy. EMB done, see procedure note. All questions answered, the patient verbalized (2) Ovarian cyst: Code(s): N83.209 - Unspecified ovarian cyst, unspecified side Category: Medical Plan: Discussed with the patient the the finding on CT scan showing bilateral ovarian cyst with no evidence of suspicious features, with a size of less than 10 cm. Discussed the patient the limitation of imaging to differentiate between benign and malignant ovarian cyst. These simple cysts are highly likely to be benign in any age group. Studies have shown that spontaneous resolution occurs in more than 2/3 of cases. Simple cysts are almost always universally benign, regardless of menopausal status or cyst size, with malignancy rates in most series of 0?1% . CA 125, ovarian cancer serum marker test, is indicated to evaluate like with of malignancy and need for surgery. Elevated levels in combination with other findings can be useful to distinguish between benign and malignant adnexal masses. Specificity and positive predictive value of CA 125 levels are consistently higher in postmenopausal woman compared to premenopausal woman. Although CA 125 level measurement is Last valuable in predicting cancer risk in premenopausal woman thin in postmenopausal woman extreme values increase suspicion for a malignant process. The overall sensitivity of CA 125 in distinguish in benign from malignant adnexal mass ranges be 61-91 % and negative for active value ranges from 67-90%. Recommended CA 125 and repeat ultrasound in 6 months. Instructions given the patient to schedule a 6 months follow-up pelvic ultrasound with follow-up appointment afterwards. All questions answered, the patient verbalized understanding. Orders: Orders AMB Endometrial Biopsy Today R93.89 - Abnormal findings on diagnostic imaging of other specified body structures CA-125 Today N83.209 - Unspecified ovarian cyst, unspecified side Coding Level of Care Code New Pt Level 3 (96265) Procedure Only Diagnoses Endometrial thickening on ultrasound R93.89 Ovarian cyst N83.209 CPT Codes Endometrial Biopsy - CPT: 62750-[id number] Biopsy ([id number])
== END 2024-01-01 09:02 | disposition home or self-care (01) ==
PROVIDERS: PCP Internal Medicine; Visit Provider Obstetrics & Gynecology
DX: R93.89 Abnormal findings on diagnostic imaging of other specified body structures (principal); N83.201 Unspecified ovarian cyst, right side; N83.202 Unspecified ovarian cyst, left side
CPT/HCPCS: 58100; 99203

== ENCOUNTER 2024-01-01 09:12 | Outpatient (REF) | payer MEDICARE, OTHER, SELFPAY | END 2024-01-01 09:13 | disposition home or self-care (01) | LOC: HO.LNP 09:12 | PROVIDERS: Visit Provider Obstetrics & Gynecology | DX: N83.209 Unspecified ovarian cyst, unspecified side (principal); R93.89 Abnormal findings on diagnostic imaging of other specified body structures | CPT/HCPCS: 36415; 58100; 86304; 88305; 99202 ==

== ENCOUNTER 2024-01-03 11:58 | Outpatient (AMB) | payer MEDICARE, OTHER, SELFPAY ==
[2024-01-03 12:34] VITALS: BMI 21.1
--- NOTE | 2024-01-03 12:34 | A.OFFVIS_ITS ---
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 The patient has no complaints, no vaginal bleeding, no feverishness chills or abdominal pain. The endometrial biopsy pathology report showed the following: Endometrium, biopsy: Scant strips of benign atrophic endometrium, endocervical glandular epithelium, atrophic squamous epithelium, and polypoid fragments of endocervical glandular mucosa, in a background of abundant mucus; no atypia or carcinoma (see comment). Comment: The findings do not explain a thickened endometrium FORMERLY [facility], [facility] Medical History History of breast cancer COPD (chronic obstructive pulmonary disease) Vertigo Surgical History History of local excision of skin lesion (12/29/11) History of colonoscopy History of right breast biopsy (11/21/12) History of excision of lesion (12/04/08) History of hemorrhoidectomy History of lumpectomy (01/03/13) History of back surgery (02/2015) History of hip replacement (08/2019) Family History Sister History of breast cancer, Onset Age: 64 Maternal Aunt History of lung cancer Social History Household Members: Spouse Housing: Condominium Are you a primary daycare teacher to a significant other at home: No Do you presently have visiting nurse or other home services: No Alcohol intake: never Patient Tobacco Use Status: Never used Tobacco service: No Current occupational status: retired Female Reproductive History Menstrual Date of last menstrual period: 05/27/20 Total pregnancies: 2 Full term: 2 Review of Systems Card Reports as per HPI and Reports no additional complaints Resp Reports as per HPI and Reports no additional complaints GI Reports as per HPI and Reports no additional complaints Reports as per HPI Physical Exam Vital Signs: BMI result Body Mass Index 21.1 Const General: cooperative, healthy appearing and comfortable Resp Effort & Inspection: normal respiratory effort Auscultation: clear to auscultation bilaterally Percussion: percussion normal Cardio Palpation: normal PMI Rate: regular rate Rhythm: regular rhythm Heart sounds: no murmurs and no rubs Peripheral pulses: Peripheral pulses 2+ throughout GI Inspection: Yes normal to inspection Palpation (GI): Soft to palpation, nontender, no guarding, not rigid and No hepatosplenomegaly present Percussion: Yes normal to percussion Auscultation: normal bowel sounds Rectal Exam - Female: deferred Assessment & Plan Assessment & Plan (1) Abnormal ultrasound of endometrium: Code(s): R93.5 - Abnormal findings on diagnostic imaging of other abdominal regions, including retroperitoneum Category: Medical Plan: Discussed with the patient the results the pathology showing benign atrophic endometrium. In addition discussed with the patient the pathologist comment stating that the findings do not explain a thickened endometrium. The negative predictive value, positive predictive value, Sensitivity, specificity of using ultrasound measurement of endometrial stripe to detecting endometrial pathology including hyperplasia , polyp or cancer were discussed with the patient. Recommended to the patient that the next step is an endometrial sampling via hysteroscopy D&C possible polypectomy versus endometrial biopsy to r/o endometrial pathology including hyperplasia or cancer. All the pros and cons r isks and benefits of each approach were discussed with the patient, endometrial biopsy being less invasive, office procedure with less sensitivity and inability diagnose a polyp and removal versus hysteroscopy done under anesthesia more invasive more sensitive to endometrial cancer and possibility of diagnosing and endometrial polyp with the possibility of polypectomy. All questions were answered pt verbalized understanding and decided to proceed with hysteroscopy D&C possible polypectomy/myomectomy. Discussed with the patient the procedure , all benefits and risks including but not limited to inability to complete the procedure , insufficient endometrial tissue for a complete evaluation of the endometrial cavity , bleeding, infection, possible need for blood transfusion with all its risk ( HIV,syphilis, Hepatitis, anaphylaxis shock, others..), injury to bladder, rectum, possible need for laparoscopy/laparotomy or hysterectomy. The patient verbalized understanding and signed the consent. Instructions given the patient to stay NPO after midnight the day prior to the procedure and to take only the specific medication (s) discussed the morning of the surgical procedure and to schedule a 2 week postoperative appointment Coding Level of Care Code Est Pt Level 3 (63992) Diagnoses Abnormal ultrasound of endometrium R93.5
== END 2024-01-03 15:22 | disposition home or self-care (01) ==
LOC: HO.HWS 11:58
PROVIDERS: PCP Internal Medicine; Visit Provider Obstetrics & Gynecology
DX: R93.5 Abnormal findings on diagnostic imaging of other abdominal regions, including retroperitoneum (principal)
CPT/HCPCS: 99213

== ENCOUNTER → 2024-01-03 11:58 | Outpatient (BNVA) | payer MEDICARE, OTHER, SELFPAY | PROVIDERS: PCP Internal Medicine; Visit Provider Obstetrics & Gynecology | DX: R93.5 Abnormal findings on diagnostic imaging of other abdominal regions, including retroperitoneum (principal) | CPT/HCPCS: 99212 ==

== ENCOUNTER 2024-01-09 11:40 | Day surgery (SDC) | payer MEDICARE, OTHER, SELFPAY ==
[2024-01-09] VITALS (7 sets, daily range): BP systolic 116–157; BP diastolic 68–70; PULSE 56–74; RESP 16–20; TEMP 36.3–36.6; O2SAT 96–100; BMI 22.2
[2024-01-09] MEDS: Lactated Ringers 1,000 ML 100 ML IVCONT (12:49)
--- NOTE | 2024-01-09 14:05 | HO.ANESPROP2 ---
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) Past Medical History Medical History (Updated 01/09/24 @ 13:03 by Aimee Fajardo RN) Dementia History of breast cancer COPD (chronic obstructive pulmonary disease) Vertigo Family History Family History Sister History of breast cancer, Onset Age: 64 Maternal Aunt History of lung cancer Surgical History Surgical History History of local excision of skin lesion (12/29/11) History of colonoscopy History of right breast biopsy (11/21/12) History of excision of lesion (12/04/08) History of hemorrhoidectomy History of lumpectomy (01/03/13) History of back surgery (02/2015) History of hip replacement (08/2019) Social History Social History Household Members: Spouse Housing: Condominium Are you a primary personal care attendant to a significant other at home: No Do you presently have visiting nurse or other home services: No Alcohol intake: never Patient Tobacco Use Status: Never used Tobacco Are you DNR?: No Advance Directives: No Advance Directives Information Provided: Yes Recently lost weight without trying: No Nutrition Risks: No Nutritional Risk service: No Current occupational status: retired Meds Allergies Allergy/AdvReac Type Severity Reaction Status Date / Time cortisone Allergy Unknown facial Uncoded 01/03/24 12:37 swelling ENVIRONMENTAL Allergy Unknown SNEEZING,SN Uncoded 01/03/24 12:37 IFFLING Home Medications ?Medication ?Instructions ?Recorded ?Confirmed ?Last Taken ?Type donepezil 10 mg tablet 10 mg PO BEDTIME 10/03/22 02/08/23 Unknown History gabapentin 100 mg capsule 100 mg PO BEDTIME 10/03/22 02/08/23 Unknown History Centrum 01/09/24 01/09/24 Unknown History ipratropium bromide 21 mcg (0.03 2 spray intranasal Q12H 01/09/24 01/09/24 Unknown History %) nasal spray Assessment and Plan Assessment Anesthesia Assessment: Chart Reviewed Documented by User: Mary Gaffney, 01/09/24 14:10 [facility] Past Medical History Medical History (Updated 01/09/24 @ 13:03 by Aimee Fajardo RN) Dementia History of breast cancer COPD (chronic obstructive pulmonary disease) Vertigo Family History Family History Sister History of breast cancer, Onset Age: 64 Maternal Aunt History of lung cancer Family history of problems with anesthesia: No Surgical History Surgical History History of local excision of skin lesion (12/29/11) History of colonoscopy History of right breast biopsy (11/21/12) History of excision of lesion (12/04/08) History of hemorrhoidectomy History of lumpectomy (01/03/13) History of back surgery (02/2015) History of hip replacement (08/2019) History of Problems with Anesthesia: No Social History Social History Household Members: Spouse Housing: Condominium Are you a primary personal care attendant to a significant other at home: No Do you presently have visiting nurse or other home services: No Alcohol intake: never Patient Tobacco Use Status: Never used Tobacco Are you DNR?: No Advance Directives: No Advance Directives Information Provided: Yes Recently lost weight without trying: No Nutrition Risks: No Nutritional Risk service: No Current occupational status: retired Meds Allergies Allergy/AdvReac Type Severity Reaction Status Date / Time cortisone Allergy Unknown facial Uncoded 01/03/24 12:37 swelling ENVIRONMENTAL Allergy Unknown SNEEZING,SN Uncoded 01/03/24 12:37 IFFLING Home Medications ?Medication ?Instructions ?Recorded ?Confirmed ?Last Taken ?Type donepezil 10 mg tablet 10 mg PO BEDTIME 10/03/22 02/08/23 Unknown History gabapentin 100 mg capsule 100 mg PO BEDTIME 10/03/22 02/08/23 Unknown History Centrum 01/09/24 01/09/24 Unknown History ipratropium bromide 21 mcg (0.03 2 spray intranasal Q12H 01/09/24 01/09/24 Unknown History %) nasal spray Exam Exam Date and Time: January 09, 2024 1404 Height,Weight and Vital Signs: Height 5 ft 3 in Weight 56.835 kg Vital Signs Temperature 97.4 F 01/09/24 12:17 Pulse Rate 74 01/09/24 12:17 Respiratory Rate 20 01/09/24 12:17 Blood Pressure 142/69 H 01/09/24 12:17 Pulse Oximetry 96 01/09/24 12:17 Oxygen Delivery Method Room Air 01/09/24 12:17 Temperature 97.4 F 01/09/24 12:17 Pulse Rate 74 01/09/24 12:17 Respiratory Rate 20 01/09/24 12:17 Blood Pressure 142/69 H 01/09/24 12:17 Pulse Oximetry 96 01/09/24 12:17 Oxygen Delivery Method Room Air 01/09/24 12:17 Airway Mallampati Class: II TM Dist: >3cm Neck ROM: Full Loose/Missing/Broken Teeth: Yes (a few missing teeth but no loose teeth per patient) Heart: S1S2 Lungs: CTAB Assessment and Plan Assessment Anesthesia Assessment: Anesthesia Plan Discussed Final Anesthetic Review Family History of Problems with Anesthesia: No History of Problems with Anesthesia: No NPO: Yes ASA Class: III Final Preanesthetic Review: No Changes in Pt Med Stat, Meds/Allgs Chart Reviewed, Consent Obtained/Reviewed and Anes Risks/Benef Reviewed Patient Risk: Low Procedure Risk: Low Anesthetic Plan Anesthetic Plan: GA and Agree w/ Assess. and Plan Disposition: Standard PACU
--- NOTE | 2024-01-09 14:37 | MHC.SHP ---
Pre-Procedural Eval Section A - 24 Hr Update-Section A only Date of Service: 01/09/24 The patient is an INPATIENT: No Changes since office visit: No Cold of Flu in the past 2 weeks, No New Medical Problems, No Changes in Medication and No Patient answered all questions The patient has been examined within 24 hours of the surgical procedure. The History & Physical has been completed within 30 days and I have reviewed it.: Yes Section B - Complete if H&P > 30 days Chief Complaint: Abnormal findings on diagnostic imaging of limbs Allergies: Allergies Allergy/AdvReac Type Severity Reaction Status Date / Time cortisone Allergy Unknown facial Uncoded 01/03/24 12:37 swelling ENVIRONMENTAL Allergy Unknown SNEEZING,SN Uncoded 01/03/24 12:37 IFFLING Plan Diagnosis/Plan: Unchanged I have reviewed the history and physical and performed a pertinent physical examination on my patient. No changes have occurred unless specified. Time Spent With Patient Time: Total time managing care of this patient today ____ minutes.
--- NOTE | 2024-01-09 15:08 | PM.OP ---
Brief Operative Note Date of Service: 01/09/24 Pre-op diagnosis: Abnormal endometrium by ultrasound Post-op diagnosis: same (2 endometrial polyps) Procedure: Hysteroscopy D&C, Polypectomy Surgeon: Joaquin Oliva MD Anesthesia: GLMA Was an Truck Driver Teamster used for this Procedure?: No Estimated blood loss (mL): 0 Pathology: other (Endometrial Scrapping. Polyp) Condition: stable Disposition: PACU
--- NOTE | 2024-01-09 15:09 | W.PM.OPN ---
Operative Note Operative Note Date of Service: 01/09/24 Narrative: Preop Diagnosis: Abnormal endometrium by US Operation: Diagnostic Hysteroscopy, Dilataion & Curettage and polypectomy Post Op Diagnosis: 2 Endometrial Polyps QBL: Minimal Anesthesia: GLMA Surgeon: Joaquin Oliva MD Epic Ambulatory Analysts: None Complication: None Pathology: Endometrial Scrapings, Endometrial polyps Procedure: The patient was put in the dorsal lithotomy position, scrubbed, and draped in the usual manner. A sterile speculum was inserted in the patient's vagina. The anterior lip of the cervix was grasped with a single tooth tenaculum. The cervix was dilated up to 5 mm, then the scope was inserted in the patient's uterus. Inspection revealed 2 endometrial polyps. The Myosure Reach device was used; it was introduced through the operative channel and polypectomies done with no complications. The scope was then taken out from the uterine cavity, sharp curettings was carried on with minimal amount of tissues retrieved. At the end of the procedure, all instruments were taken out of the patient uterine and vaginal cavity. The single tooth tenaculum was removed and homeostasis was assured using pressure,. The patient tolerated the procedure well and was transferred to the PACU in a stable condition.
== END 2024-01-09 16:17 | disposition home or self-care (01) ==
PROVIDERS: PCP Internal Medicine; Visit Provider Obstetrics & Gynecology
PROC: 0UDB8ZZ Extraction of Endometrium, Via Natural or Artificial Opening Endoscopic (ICD-10-PCS; CPT 58558; principal; 2024-01-09 14:30)
DX: N84.0 Polyp of corpus uteri (principal); J44.9 Chronic obstructive pulmonary disease, unspecified
CPT/HCPCS: 58558; 88305; J0131; J1100; J2405; J2704; J3010

== ENCOUNTER → 2024-01-09 11:40 | Outpatient (BNV) | payer MEDICARE, OTHER, SELFPAY | PROVIDERS: PCP Internal Medicine; Visit Provider Obstetrics & Gynecology | DX: N84.0 Polyp of corpus uteri (principal) | CPT/HCPCS: 58558 ==

== ENCOUNTER 2024-01-23 12:14 | Outpatient (AMB) | payer MEDICARE, OTHER, SELFPAY ==
--- NOTE | 2024-01-23 12:16 | A.OFFVIS_ITS ---
Vital Signs 01/23/24 12:17 Height 5 ft 3 in Weight 120 lb BMI 21.3 BP 110/62 Intake Visit Reasons: post op Allergies cortisone Allergy (Unknown, Uncoded 01/03/24 12:37) facial swelling ENVIRONMENTAL Allergy (Unknown, Uncoded 01/03/24 12:37) SNEEZING,SNIFFLING HPI Comments Details: The patient is presenting post hysteroscopy D&C no complaints minimal vaginal bleeding no feverishness chills or abdominal pain. The pathology showed the following: A. Endometrium, curettage: Scant benign atrophic endometrium, fragments of benign fibrotic endometrial polyps, benign endocervical glandular mucosa, and benign squamous epithelium; no atypia or carcinoma. B. Endometrial polyps, resection: Fragments of benign endometrial and endocervical/lower uterine segment polyps with inactive glands and fibrotic stroma; no atypia or carcinoma [facility] Medical History Dementia History of breast cancer COPD (chronic obstructive pulmonary disease) Vertigo Surgical History History of local excision of skin lesion (12/29/11) History of colonoscopy History of right breast biopsy (11/21/12) History of excision of lesion (12/04/08) History of hemorrhoidectomy History of lumpectomy (01/03/13) History of back surgery (02/2015) History of hip replacement (08/2019) Family History Sister History of breast cancer, Onset Age: 64 Maternal Aunt History of lung cancer Social History Household Members: Spouse Housing: Condominium Are you a primary home care liaison to a significant other at home: No Do you presently have visiting nurse or other home services: No Alcohol intake: never Patient Tobacco Use Status: Never used Tobacco service: No Current occupational status: retired Review of Systems Const All systems reviewed & are unremarkable except as noted in HPI and below Reports as per HPI and Reports no additional complaints GI Reports no additional complaints Reports no additional complaints Physical Exam Vital Signs: BMI result Body Mass Index 21.3 Assessment & Plan Assessment & Plan (1) Abnormal ultrasound of endometrium: Comment: Status post hysteroscopic polypectomy and D and C, benign pathology Code(s): R93.5 - Abnormal findings on diagnostic imaging of other abdominal regions, including retroperitoneum Category: Medical Plan: Discussed with the patient the intraoperative findings showing endometrial polyp, the results of the pathology showing benign polyp and endometrium. Disc ussed with the patient the sensitivity, specificity, positive and negative predictive value, of endometrial biopsy in detecting endometrial pathology including but not limited to endometrial hyperplasia, cancer and other pathology; instructed the patient to call in case vaginal bleeding bleeding recurs, the next step will be to proceed with further endometrial sampling evaluation to rule out endometrial pathology. All questions answered and the patient verbalized understanding and agreed with the plan. Coding Level of Care Code Est Pt Level 3 (87686) Diagnoses Abnormal ultrasound of endometrium R93.5
[2024-01-23 12:17] VITALS: BP 110/62; BMI 21.3
== END 2024-01-23 12:33 | disposition home or self-care (01) ==
LOC: HO.HWS 12:14
PROVIDERS: PCP Internal Medicine; Visit Provider Obstetrics & Gynecology
DX: R93.5 Abnormal findings on diagnostic imaging of other abdominal regions, including retroperitoneum (principal)
CPT/HCPCS: 99213

== ENCOUNTER → 2024-01-23 12:14 | Outpatient (BNVA) | payer MEDICARE, OTHER, SELFPAY | PROVIDERS: PCP Internal Medicine; Visit Provider Obstetrics & Gynecology | DX: Z09 Encounter for follow-up examination after completed treatment for conditions other than malignant neoplasm (principal); R93.5 Abnormal findings on diagnostic imaging of other abdominal regions, including retroperitoneum | CPT/HCPCS: 99212 ==

== ENCOUNTER 2024-02-25 07:34 | Outpatient (REF) | payer MEDICARE, OTHER, SELFPAY ==
[2024-02-25 07:56] LABS: MANUAL DIFF FLAG NO
[2024-02-25 08:43] LABS: Basophils Absolute Auto 0.1 X10*3/uL (0.0-0.2); Basophils Percent Auto 0.9 % (0-2); Eosinophils Absolute Auto 0.1 X10*3/uL (0.0-0.4); Eosinophils Percent Auto 1.3 % (0-4); Hematocrit 43.6 % (37.0-47.0); Hemoglobin 14.4 g/dl (12.0-16.0); Imm Gran Abs Auto 0.02 X10*3/uL (0.00-0.03); Imm Gran Pct Auto 0.3 % (0.0-0.4); Lymphocytes Absolute Auto 1.6 X10*3/uL (1.2-4.9); Lymphocytes Percent Auto 23.8 % (20-40); Mean Corpuscular Hemoglobin 31.2 pg (27.0-33.0); Mean Corpuscular Volume 94.6 fL (80.0-98.0); Mean Platelet Volume 10.1 fL (9.4-12.3); Monocytes Absolute Auto 0.5 X10*3/uL (0.1-1.2); Monocytes Percent Auto 7.1 % (2-11); Neutrophils Absolute Auto 4.5 x10*3/uL (2.0-8.3); Neutrophils Percent Auto 66.6 % (45-73); Platelet Count 209 X10*3/uL (160-400); Red Blood Count 4.61 X10*6/uL (4.20-5.50); Red Cell Distribution Width 14.1 % (11.0-16.0); White Blood Count 6.7 X10*3/uL (4.8-10.8)
[2024-02-25 09:25] LABS: Alanine Aminotransferase 25 U/L (0-31); Albumin Level 4.3 g/dL (3.5-5.0); Alkaline Phosphatase 100 U/L (39-117); Anion Gap 10 (12-20); Aspartate Amino Transferase 29 U/L (5-31); Bilirubin Total 0.8 mg/dL (0.0-1.0); Blood Urea Nitrogen 15 mg/dL (9-16); Calcium 9.7 mg/dL (8.4-10.2); Carbon Dioxide 30 mmol/L (22-29); Chloride 105 mmol/L (96-108); Cholesterol 188 mg/dL (<200); Estimated Glomerular Filt Rate > 60; Glucose Random 92 mg/dL (60-115); HDL Cholesterol 60 mg/dL (>40); LDL Cholesterol Calculated 93 mg/dL (<100); Potassium 4.1 mmol/L (3.3-5.1); Sodium 141 mmol/L (135-145); Total Protein 7.3 g/dL (6.5-8.0); Triglycerides 175 mg/dL (<150)
[2024-02-25 09:41] LABS: Thyroid Stimulating Hormone 2.42 uIU/mL (0.32-4.0); Vitamin D 25-OH Total 60.9 ng/mL (>30)
[2024-02-25 10:51] LABS: Vitamin B12 605 pg/mL (200-900)
== END 2024-02-25 07:35 | disposition home or self-care (01) ==
LOC: HO.LAB 07:34
PROVIDERS: PCP Internal Medicine; Visit Provider Internal Medicine
DX: E55.9 Vitamin D deficiency, unspecified (principal); D51.8 Other vitamin B12 deficiency anemias; R63.4 Abnormal weight loss; E78.00 Pure hypercholesterolemia, unspecified
CPT/HCPCS: 36415; 80053; 80061; 82306; 82607; 84443; 85025

== ENCOUNTER 2024-02-27 12:52 | Outpatient (REF) | payer MEDICARE, OTHER, SELFPAY | END 2024-02-27 12:53 | disposition home or self-care (01) | LOC: HO.LNP 12:52 | PROVIDERS: PCP Internal Medicine; Visit Provider Obstetrics & Gynecology | DX: L02.91 Cutaneous abscess, unspecified (principal) | CPT/HCPCS: 87070; 87205; 99212 ==

== ENCOUNTER 2024-02-27 12:52 | Outpatient (AMB) | payer MEDICARE, OTHER, SELFPAY ==
--- NOTE | 2024-02-27 13:07 | A.OFFVIS_ITS ---
Vital Signs 02/27/24 13:11 Height 5 ft 3 in Weight 119 lb 0.794 oz BMI 21.1 Intake Visit Reasons: Lump/mass Director Of Customer Acquisition Required: No Information Interpreted: non-clinical & clinical Stock Supervisor: Stock Supervisor Present (Felicity BERRY) Accompanied by: Spouse Allergies cortisone Allergy (Unknown, Uncoded 02/27/24 13:11) facial swelling ENVIRONMENTAL Allergy (Unknown, Uncoded 02/27/24 13:11) SNEEZING,SNIFFLING Post menopausal: Yes HPI Comments Details: Presenting complaining of left upper side swelling started few days ago and started draining today, no fever or chills and no other complaints PFSH Medical History Dementia History of breast cancer COPD (chronic obstructive pulmonary disease) Vertigo Surgical History History of local excision of skin lesion (12/29/11) History of colonoscopy History of right breast biopsy (11/21/12) History of excision of lesion (12/04/08) History of hemorrhoidectomy History of lumpectomy (01/03/13) History of back surgery (02/2015) History of hip replacement (08/2019) Family History Sister History of breast cancer, Onset Age: 64 Maternal Aunt History of lung cancer Social History Household Members: Spouse Housing: Condominium Are you a primary rn progressive care unit to a significant other at home: No Do you presently have visiting nurse or other home services: No Alcohol intake: never Patient Tobacco Use Status: Never used Tobacco service: No Current occupational status: retired Physical Exam Skin Other: Left upper side 1 cm abscess draining Assessment & Plan Assessment & Plan (1) Skin abscess: Comment: Left upper thigh Code(s): L02.91 - Cutaneous abscess, unspecified Category: Medical Plan: Culture taken. The abscess was cleaned with hydrogen peroxide. Explained to the patient the finding on physical exam showing 1 cm skin abscess without evidence of cellulitis, draining. Since it is draining spontaneously will defer I&D. If drainage stops and abscess does not resolve or gets bigger will proceed with I&D. Instructions given the patient to clean it twice a day and to call in case of worsening of the pain or redness an increase in the size of the abscess or nonresolution of the absolute within few days. All questions answered, the patient verbalized understand Coding Level of Care Code Est Pt Level 3 (25280) Diagnoses Skin abscess L02.91
[2024-02-27 13:11] VITALS: BMI 21.1
== END 2024-02-27 13:28 | disposition home or self-care (01) ==
LOC: HO.HWS 12:52
PROVIDERS: PCP Internal Medicine; Visit Provider Obstetrics & Gynecology
DX: L02.91 Cutaneous abscess, unspecified (principal)
CPT/HCPCS: 99213

== ENCOUNTER 2024-03-18 08:12 | Outpatient (REF) | payer MEDICARE, OTHER, SELFPAY ==
--- NOTE | ~2024-03-18 | MM_ITS ---
EXAMINATION: MM SCREENING DIGITAL BREAST TOMOSYNTHESIS, BILATERAL CLINICAL INFORMATION: Screening. Asymptomatic. COMPARISON: Mammography: This study is compared with prior exams dating back to 2019. TECHNIQUE: Digital breast tomosynthesis is performed in both the craniocaudal and mediolateral oblique views along with computer-aided detection (CAD). Synthesized 2D images are generated from the tomosynthesis. FINDINGS: There are scattered areas of fibroglandular density (ACR BI-RADS breast composition Category b). There are no significant masses, abnormal calcifications, or other abnormalities. Bilateral benign calcifications. There is a biopsy tissue marker and now right breast. MM/MM tomosynthesis screening BI IMPRESSION: No mammographic evidence of malignancy. ASSESSMENT: BI-RADS BI-RADS 2 - Benign Findings RECOMMENDATION: Routine annual mammography screening. 1 year F/U This examination should not preclude the clinical evaluation of a suspicious palpable abnormality. This patient's information was entered into a reminder system with a target due date for their next mammogram. Electronically signed by: Sarah Cantrell MD 04/15/2024 11:58 AM EDT
== END 2024-03-18 08:13 | disposition home or self-care (01) ==
LOC: HO.MAMMO 08:12
PROVIDERS: PCP Internal Medicine; Visit Provider Internal Medicine
DX: Z12.31 Encounter for screening mammogram for malignant neoplasm of breast (principal)
CPT/HCPCS: 77063; 77067

== ENCOUNTER → 2024-03-18 08:30 | Outpatient (BNV) | payer MEDICARE, OTHER, SELFPAY | PROVIDERS: PCP Internal Medicine; Visit Provider Radiology Diagnostic Radiology | DX: Z12.31 Encounter for screening mammogram for malignant neoplasm of breast (principal) | CPT/HCPCS: 77063; 77067 ==

== ENCOUNTER 2024-03-26 12:34 | Emergency (ER) | payer MEDICARE, OTHER, SELFPAY ==
--- NOTE | 2024-03-26 12:35 | ED_ITS ---
HPI - General Adult General Chief complaint: Headache Stated complaint: pain l side head Time Seen by Provider: 03/26/24 14:18 Source: patient Mode of arrival: ambulatory Limitations: no limitations History of Present Illness ED Provider: Ruchi Sahh PA-C HPI narrative: Patient is an 88 year old assigned female at with a history of breast CA presenting to the emergency department today with a left sided headache. Patient states that over the last few days she has had a left sided headache that is worse with chewing. Patient denies any dizziness, lightheadedness, abdominal pain, nausea, vomiting, fever, chills, blurry vision, double vision, loss of vision, chest pain, difficulty breathing, shortness of breath, back pain, night sweats, pain with urination, increased urinary frequency, increased urinary urgency, blood in her urine or stool, syncope or a near syncopal episode, recent trauma or falls, bowel incontinence, bladder incontinence, or any other complaints at this time. Onset (ago): day(s) Location: head and left Severity: mild Relieving factors: none Exacerbating factors: other (chewing) Associated symptoms: denies other symptoms Treatments prior to arrival: none Related Data Home Medications ?Medication ?Instructions ?Recorded ?Confirmed donepezil 10 mg tablet 10 mg PO BEDTIME 10/03/22 02/08/23 gabapentin 100 mg capsule 100 mg PO BEDTIME 10/03/22 02/08/23 Centrum 01/09/24 01/09/24 ipratropium bromide 21 mcg (0.03 2 spray intranasal Q12H 01/09/24 01/09/24 %) nasal spray Allergies Allergy/AdvReac Type Severity Reaction Status Date / Time cortisone Allergy Unknown facial Uncoded 03/26/24 12:40 swelling ENVIRONMENTAL Allergy Unknown SNEEZING,SN Uncoded 03/26/24 12:40 IFFLING Review of Systems 2 Constitutional: Constitutional: Reports no additional constitutional complaints, Denies chills, Denies fever(s), Reports headache(s) (left sided) and Denies night sweats Eyes: Eyes: Reports no additional eye complaints, Denies blurry vision, Denies change in vision, Denies diplopia, Denies eye discharge, Denies loss of vision and Denies eye pain ENT: Denies dizziness and Reports headache(s) (left sided) Cardiovascular: Cardiovascular: Reports no additional cardiovascular complaints, Denies chest pain, Denies lightheadedness, Denies Loss of Consciousness and Denies dyspnea Respiratory: Respiratory: Reports no additional respiratory complaints and Denies dyspnea Gastrointestinal: Gastrointestinal: Reports no additional gastrointestinal complaints, Denies abdominal pain, Denies melena, Denies hematochezia, Denies change in bowel habits and Denies change in stool character Genitourinary: Genitourinary: Denies hematuria, Denies urinary frequency, Denies dysuria, Denies urinary incontinence, Denies urinary hesitancy and Denies urinary urgency Musculoskeletal: Musculoskeletal: Reports no additional musculoskeletal complaints, Denies numbness and Denies tingling Neurologic: Denies dizziness, Reports headache(s) (left sided), Denies loss of vision, Denies numbness and Denies tingling Psychiatric: Psychiatric: Reports no additional psychiatric complaints Endocrine: Endocrine: Reports no additional endocrine complaints Hematologic/Lymphatic: Hematologic/Lymphatic: Reports no additional hematologic/lymphatic complaints Allergic/Immunologic: Allergic/Immunologic: Reports no additional allergic/immunologic complaints PMFSH Past Medical History Attestation statement: The following information was validated with the patient. Source: old records reviewed and nursing notes reviewed Medical History Dementia History of breast cancer COPD (chronic obstructive pulmonary disease) Vertigo Surgical History History of local excision of skin lesion (12/29/11) History of colonoscopy History of right breast biopsy (11/21/12) History of excision of lesion (12/04/08) History of hemorrhoidectomy History of lumpectomy (01/03/13) History of back surgery (02/2015) History of hip replacement (08/2019) Family History Family History Sister History of breast cancer, Onset Age: 64 Maternal Aunt History of lung cancer Social History Social History Household Members: Spouse Housing: Condominium Are you a primary chiropractic care to a significant other at home: No Do you presently have visiting nurse or other home services: No Alcohol intake: never Patient Tobacco Use Status: Never used Tobacco Advance Directives: No Advance Directives Information Provided: No service: No Current occupational status: retired Physical Exam ED Vital Signs: Vital Signs - 24 hr 03/26/24 12:36 03/26/24 15:12 Temperature 98 F 98 F Pulse Rate 71 71 Respiratory Rate 17 17 Blood Pressure 118/79 118/79 Pulse Oximetry 98 98 Oxygen Delivery Method Room Air BMI result Body Mass Index 21.9 Const General: cooperative, no acute distress, alert and awake Nutritional Appearance: well nourished Orientation/consciousness: patient oriented x3 Limitations: no limitations HENMT Head: Yes normal to inspection and Yes atraumatic Ears: hearing grossly normal bilaterally and external ears normal General nose exam: Normal external nose present, no nasal discharge noted and no epistaxis Face and sinus: Yes normal facial exam, No abrasion and No laceration Mouth: Normal oral and palatal mucosa present, no drooling and no muffled voice Teeth and gingiva: other (pain with pressure on tooth 15 and 16) Eyes General: appearance normal, both eyes and all related structures Periorbital: periorbital findings normal Eyelids: Yes eyelids normal Conjunctivae: conjunctivae normal Pupils: Equal, round and reactive pupils present EOM: EOMs intact bilaterally Neck Neck: Yes normal visual inspection, Yes full ROM and Yes no lymphadenopathy Chest Chest palpation & inspection: normal inspection of the chest Resp Effort & Inspection: normal respiratory effort and able to speak in complete sentences GI Inspection: Yes normal to inspection Neuro General: patient oriented x3 and moves all extremities Cranial nerves: Yes Equal, round and reactive pupils present Cognition (Neuro): normal cognition Extrem General: Yes normal to inspection, Yes full ROM and Yes capillary refill normal Psych Appearance: grossly normal Mental Status: mental status grossly normal Affect: normal affect Attitude: cooperative Thought process: Normal thought process present Thought content: Normal thought content present Insight: Good insight present (Psych) Course Course Course Narrative: This is an RME done by SALENA Mackey: Additional HPI, ROS, PE not included below will be deferred to primary provider. 88 year old female presenting with concerns of L side head pain x 1 week that is intermittent. The pain is mainly localized to the L temporal area, and feels like a sharp electric explosion. Pt says that movement makes it worse when she chews or swallows. She states she hears a clicking noise upon swallowing. Denies headaches, vision changes. Plan - labs Appearance: Alert.? Oriented X3.? No acute cardiopulmonary distress distress.? Head: Normocephalic, atraumatic, no step-offs or deformities Neck: Normal inspection.? Neck supple.? CVS: Pulses normal.? Respiratory: No respiratory distress.? Abdomen: Soft and nontender.? Skin: ? Normal skin color. Extremities: 5/5 strength to bilateral upper and lower extremities Neuro: Oriented X 3.? No motor deficit.? No sensory deficit. Medical Decision Making Medical Decision Making [facility] Narrative: Patient is an 88 year old assigned female at with a history of breast CA presenting to the emergency department today with a left sided headache. Patient's physical exam showed pain in the left sikh with pressure against tooth 15 and 16. Patient's blood work was unremarkable. I explained my physical exam findings as well as all test results to the patient. I answered all questions asked by the patient. I stressed the importance of the patient taking her medication as directed (either prescribed or as the over the counter packaging recommends). I stressed the importance of the patient following up with her primary care provider and a dentist. I stressed the importance of the patient returning to the emergency department immediately if her symptoms were to worsen or if she were to develop any dizziness, shortness of breath, difficulty breathing, chest pain, blurry vision, loss of vision, nausea, vomiting, abdominal pain, fever, chills, back pain, or any other complaints. Patient verbalized agreement and understanding with this treatment plan and discharge. Differential Diagnosis Differential Diagnoses: The differential diagnosis associated with the presentation includes Giant cell Dental caries Dental pain Headache Tension headache Admission/Observation Consideration of admission/observation: Escalation of care including admission/observation considered Patient would have been admitted to the hospital had her work up had any findings where hospital admission was appropriate and her clinical presentation warranted hospital admission. Lab Data [facility] Lab Attestation statement: I reviewed the patient's lab results. My interpretation of these results are in the [facility] Rationale portion of this note. 03/26/24 12:47 03/26/24 12:47 Labs: Lab Results 03/26/24 Range/Units 12:47 WBC 7.9 (4.8-10.8) X10*3/uL RBC 4.28 (4.20-5.50) X10*6/uL Hgb 13.6 (12.0-16.0) g/dl Hct 40.8 (37.0-47.0) % MCV 95.3 (80.0-98.0) fL MCH 31.8 (27.0-33.0) pg MCHC 33.3 (31.0-35.0) g/dl RDW 14.2 (11.0-16.0) % Plt Count 186 (160-400) X10*3/uL MPV 9.6 (9.4-12.3) fL Immature Gran % (Auto) 0.4 (0.0-0.4) % Neut % (Auto) 68.9 (45-73) % Lymph % (Auto) 24.2 (20-40) % [place] % (Auto) 4.8 (2-11) % Eos % (Auto) 0.9 (0-4) % Baso % (Auto) 0.8 (0-2) % Lymph # (Auto) 1.9 (1.2-4.9) X10*3/uL [place] # (Auto) 0.4 (0.1-1.2) X10*3/uL Eos # (Auto) 0.1 (0.0-0.4) X10*3/uL Baso # (Auto) 0.1 (0.0-0.2) X10*3/uL Abs Immat Gran (auto) 0.03 (0.00-0.03) X10*3/uL Absolute Neuts (auto) 5.4 (2.0-8.3) x10*3/uL Absolute Nucleated RBC 0.000 (0.0-0.012) X10*3/uL Nucleated RBC % (auto) 0.0 (0.0-0.2) /100WBC ESR 10 (0-20) MM/HR Sodium 140 (135-145) mmol/L Potassium 4.2 (3.3-5.1) mmol/L Chloride 104 (96-108) mmol/L Carbon Dioxide 27 (22-29) mmol/L Anion Gap 13 (12-20) BUN 14 (9-16) mg/dL Creatinine 0.89 (0.5-1.4) mg/dL Estim Creat Clear Calc 37.5 Estimated GFR > 60 Random Glucose 185 H (60-115) mg/dL Calcium 9.7 (8.4-10.2) mg/dL Total Bilirubin 0.5 (0.0-1.0) mg/dL AST 31 (5-31) U/L ALT 29 (0-31) U/L Alkaline Phosphatase 91 (39-117) U/L C-Reactive Protein 0.26 (< or = 0.50) mg/dL Total Protein 7.2 (6.5-8.0) g/dL Albumin 4.1 (3.5-5.0) g/dL Tests considered The following testing was considered but not selected: I considered obtaining a head CT however, the patient's current clinical presentation did not warrant this. I discussed this with the patient who verbalized understanding and agreement. Discharge Plan Discharge Clinical Impression: Headache, Pain, dental Patient Disposition: Home, Self-Care Instructions: Acute Headache (DC), Toothache (ED) Additional Instructions: Your lab work was unremarkable. Given where your pain is and pain with chewing - I'm suspicious it is either pain from your masseter muscle or a tooth, both of which you would follow up with a dentist for. Follow up with your primary care provider. Return to the emergency department immediately if your symptoms worsen or if you develop any dizziness, shortness of breath, difficulty breathing, chest pain, blurry vision, loss of vision, nausea, vomiting, abdominal pain, fever, chills, back pain, or any other complaints. Call or visit any of the clinics below to establish with a dentist: [facility] [address] [place] [address] [facility] [address] [place] [address] [facility] [address] [facility] [address] [address] Santamaria [address] [place] [address] [facility] [address] [facility] [address] [place] [address] [facility] [address] [place] [address] [place] [address] [place] [address] Prescriptions: No Action ipratropium bromide 21 mcg (0.03 %) spray,non-aerosol 2 spray intranasal Q12H Centrum gabapentin 100 mg capsule 100 mg PO BEDTIME donepezil 10 mg tablet 10 mg PO BEDTIME Referrals: Rodo Anderson MD [Primary Care Provider] - Interventions: ED Discharge Assessment Last Done: 03/26/24 15:12 Discharge Date/Time: 03/26/24 15:13 Print Language: Syriac
[2024-03-26 12:36] VITALS: BP 118/79; PULSE 71; RESP 17; TEMP 36.6; O2SAT 98; BMI 21.9
[2024-03-26 12:55] LABS: MANUAL DIFF FLAG NO
[2024-03-26 12:57] LABS: Basophils Absolute Auto 0.1 X10*3/uL (0.0-0.2); Basophils Percent Auto 0.8 % (0-2); Eosinophils Absolute Auto 0.1 X10*3/uL (0.0-0.4); Eosinophils Percent Auto 0.9 % (0-4); Hematocrit 40.8 % (37.0-47.0); Hemoglobin 13.6 g/dl (12.0-16.0); Imm Gran Abs Auto 0.03 X10*3/uL (0.00-0.03); Imm Gran Pct Auto 0.4 % (0.0-0.4); Lymphocytes Absolute Auto 1.9 X10*3/uL (1.2-4.9); Lymphocytes Percent Auto 24.2 % (20-40); Mean Corpuscular HGB Conc 33.3 g/dl (31.0-35.0); Mean Corpuscular Hemoglobin 31.8 pg (27.0-33.0); Mean Corpuscular Volume 95.3 fL (80.0-98.0); Mean Platelet Volume 9.6 fL (9.4-12.3); Monocytes Absolute Auto 0.4 X10*3/uL (0.1-1.2); Monocytes Percent Auto 4.8 % (2-11); Neutrophils Absolute Auto 5.4 x10*3/uL (2.0-8.3); Neutrophils Percent Auto 68.9 % (45-73); Platelet Count 186 X10*3/uL (160-400); Red Blood Count 4.28 X10*6/uL (4.20-5.50); Red Cell Distribution Width 14.2 % (11.0-16.0); White Blood Count 7.9 X10*3/uL (4.8-10.8)
[2024-03-26 13:09] LABS: Alanine Aminotransferase 29 U/L (0-31); Albumin Level 4.1 g/dL (3.5-5.0); Alkaline Phosphatase 91 U/L (39-117); Anion Gap 13 (12-20); Aspartate Amino Transferase 31 U/L (5-31); Bilirubin Total 0.5 mg/dL (0.0-1.0); Blood Urea Nitrogen 14 mg/dL (9-16); C Reactive Protein 0.26 mg/dL (< or = 0.50); Calcium 9.7 mg/dL (8.4-10.2); Carbon Dioxide 27 mmol/L (22-29); Chloride 104 mmol/L (96-108); Creatinine Clr Calc Pharmacy 37.5; Estimated Glomerular Filt Rate > 60; Glucose Random 185 mg/dL (60-115); Potassium 4.2 mmol/L (3.3-5.1); Sodium 140 mmol/L (135-145); Total Protein 7.2 g/dL (6.5-8.0)
[2024-03-26 13:41] LABS: Erythrocyte Sedimentation Rate 10 MM/HR (0-20)
[2024-03-26 15:12] VITALS: BP 118/79; PULSE 71; RESP 17; TEMP 36.6; O2SAT 98
== END 2024-03-26 15:13 | disposition home or self-care (01) ==
PROVIDERS: Physician Assistant; Emergency Provider Emergency Medicine Emergency Medical Services; PCP Internal Medicine
DX: R51.9 Headache, unspecified (principal); K08.89 Other specified disorders of teeth and supporting structures
CPT/HCPCS: 36415; 80053; 85025; 85652; 86140; 99282; 99283

== ENCOUNTER 2024-07-02 10:28 | Outpatient (REF) | payer MEDICARE, OTHER, SELFPAY ==
--- OUTSIDE RECORDS SUMMARY | 2024-07-08 17:41 | XMS_ITS | Patient Health Record ---
Author Organization [facility] Address [address] [place] [id number] Care Team Providers Care Occupational Therapy Program Director Name Role Phone Rodo Anderson MD Primary Care Provider Malikaa Olivier Meredith Unavailable [phone] Jair Elizabeth Unavailable Unavailable ALLERGIES Allergen (clinical drug ingredient) Drug/Non Drug Allergy documented on EMR Reaction Allergy Type Onset Date Status tree pollen,dust , (uncoded) Unknown Allergy Active REASON FOR REFERRAL No Information MEDICATIONS Medication SIG (Take, Route, Fr equency, Duration) Notes Start Date End Date Status Lutein Active Caltrate 600 + D once a day Ac tive Amoxicillin 500 MG TAKE 4 TABLETS BY [facility] 1 HOUR BEFORE DENTAL PROCEDURE Oral for 3 Active IMMUNIZATIONS Vaccine Route Administration Date Status Comme nts Influenza Unknown 03/30/2020 Administered SOCIAL HISTORY Tobacco Use: Social History Observation Description Date Details (start date - stop date) Never Smoker NA - NA Sex Assigned At : Social History Observation Description Sex Assigned At Unknown Tobacco Use/Smoking Question Answer Notes Patient is a nonsmoker Alcohol Screen Question Answer Notes Did you have a drink containing alcohol in the p ast year? No Points 0 Interpretation Negative PROBLEMS Problem Type ICD Code Onset Dates Problem Status W/U Status Risk SNOMED Code Notes Problem Constipation (K59.00) Active confirmed Constipation (79471243) Problem Diverticulitis (K57.92) Active confirmed Diverticulitis (48325629) PLAN OF TREATMENT No Information Insurance Providers Payer Name Payer Address Payer Phone Subscriber Number Group Number Insured Name Patient Relationship to Insured Coverage Start Date Coverage End Date MEDICARE OF [employer] [address] [place] [id number] LULY ANGUIANO Self - patient is the insured [facility] [address] [place] [id number] LULY ANGUIANO Self - patient is the insured MEDICAL (GENERAL) HISTORY Medical History History ICD Code Denies AL,DM,CVA,renal disease COPD Hx of multiple episodes of d iverticulitis--has never been admitted--most recently in 09/[address] scan Breast cancer on the right--lumpectomy a nd XRT in 2012--sees Dr. Elizabeth Neg. colonoscopy in 08/2009 and 2001 EGD in 2001 was negative except for a HH --no esophaitis nor Multani's Neg abd U/S 07/2020 except for liver and spleen cysts Surgical History Surgery Date(Month/Year) Right hip replacement 09/16/2019 Lower back surgery Lumpectomy as above 2012 Hemorrhoids
== END 2024-07-02 10:29 | disposition home or self-care (01) ==
LOC: HO.US 10:28
PROVIDERS: PCP Internal Medicine; Visit Provider Obstetrics & Gynecology
DX: N83.209 Unspecified ovarian cyst, unspecified side (principal)
CPT/HCPCS: 76830; 76856

== ENCOUNTER → 2024-07-02 10:30 | Outpatient (BNV) | payer MEDICARE, OTHER, SELFPAY | PROVIDERS: PCP Internal Medicine; Visit Provider Radiology Diagnostic Radiology | DX: N83.291 Other ovarian cyst, right side (principal) | CPT/HCPCS: 76830; 76856 ==

== ENCOUNTER 2024-08-26 10:51 | Outpatient (REF) | payer MEDICARE, OTHER, SELFPAY ==
[2024-08-28 09:48] LABS: Carbohydrate Antigen 19-9 27 U/mL (<34)
[2024-08-28 09:59] LABS: CA-125 10 U/mL (<35)
== END 2024-08-26 10:52 | disposition home or self-care (01) ==
LOC: HO.LAB 10:51
PROVIDERS: PCP Internal Medicine; Visit Provider Obstetrics & Gynecology
DX: Z13.89 Encounter for screening for other disorder (principal)
CPT/HCPCS: 36415; 82378; 86301; 86304

== ENCOUNTER 2024-08-26 13:01 | Outpatient (REF) | payer MEDICARE, OTHER, SELFPAY | END 2024-08-26 13:02 | disposition home or self-care (01) | LOC: HO.LNP 13:01 | PROVIDERS: Visit Provider Obstetrics & Gynecology | DX: N83.299 Other ovarian cyst, unspecified side (principal); R93.89 Abnormal findings on diagnostic imaging of other specified body structures; D25.9 Leiomyoma of uterus, unspecified | CPT/HCPCS: 36415; 58100; 82378; 86301; 86304; 88305; 99212 ==

== ENCOUNTER 2024-09-02 08:01 | Outpatient (AMB) | payer MEDICARE, OTHER, SELFPAY ==
--- NOTE | 2024-09-02 08:16 | A.OFFVIS_ITS ---
Intake Visit Reasons: emb results/ lab results Director Risk: Director Risk Present (eKily) Accompanied by: Spouse Allergies cortisone Allergy (Unknown, Uncoded 03/26/24 12:40) facial swelling ENVIRONMENTAL Allergy (Unknown, Uncoded 03/26/24 12:40) SNEEZING,SNIFFLING HPI Comments Details: The patient is presenting after endometrial biopsy. The patient has no complaints, no vaginal bleeding, no feverishness chills or abdominal pain. The endometrial biopsy pathology report showed the following: Endometrium, biopsy: - Rare superficial strips of benign endometrium; no atypia identified. - Atrophic squamous and endocervical epithelium, otherwise within normal limits; mucoinflammatory material; no atypia identified. Comment: The endometrial sampling is sparse; consider repeat, as clinically appropriate [facility] Medical History Dementia History of breast cancer COPD (chronic obstructive pulmonary disease) Vertigo Surgical History History of local excision of skin lesion (12/29/11) History of colonoscopy History of right breast biopsy (11/21/12) History of excision of lesion (12/04/08) History of hemorrhoidectomy History of lumpectomy (01/03/13) History of back surgery (02/2015) History of hip replacement (08/2019) Family History Sister History of breast cancer, Onset Age: 64 Maternal Aunt History of lung cancer Social History Household Members: Spouse Housing: [facility] Are you a primary child care centre manager to a significant other at home: No Do you presently have visiting nurse or other home services: No Alcohol intake: never Patient Tobacco Use Status: Never used Tobacco service: No Current occupational status: retired Review of Systems Const All systems reviewed & are unremarkable except as noted in HPI and below Reports as per HPI and Reports no additional complaints GI Reports no additional complaints Reports no additional complaints Assessment & Plan Assessment & Plan (1) Endometrial thickening on ultrasound: Code(s): R93.89 - Abnormal findings on diagnostic imaging of other specified body structures Category: Medical Plan: Discussed with the patient the results the pathology, sparse benign endometrial, recommended to repeat sampling by pathologist. Explained to the patient the endometrial pathology including endometrial hyperplasia and/or malignancy has not been ruled out With a high accuracy given the spasre endometrial tissue recommended either repeat office EMB versus hysteroscopy D&C. The patient was referred to [facility] for further management. All questions answered, the patient verbalized understanding The patient and her requested to share her information with her cousin Shagufta Blue who helps with the health care appointment. Instructed the patient to call our office back in case a referral appointment is not scheduled, missed or canceled so that we will assist on rescheduling another appointment, the patient verbalized understanding agreed with the plan. 1:29 phone call from Shagufta Blue explained to the patient the results the pathology, need for additional sampling because of sparse tissue, the patient was referred to [facility] and to call back within 2 weeks in case an appointment is not scheduled. All questions answered, the patient verbalized understanding Coding Level of Care Code Est Pt Level 3 (80175) Diagnoses Endometrial thickening on ultrasound R93.89
== END 2024-09-02 08:54 | disposition home or self-care (01) ==
LOC: HO.HWS 08:01
PROVIDERS: PCP Internal Medicine; Visit Provider Obstetrics & Gynecology
DX: R93.89 Abnormal findings on diagnostic imaging of other specified body structures (principal)
CPT/HCPCS: 99213

== ENCOUNTER → 2024-09-02 08:01 | Outpatient (BNVA) | payer MEDICARE, OTHER, SELFPAY | PROVIDERS: PCP Internal Medicine; Visit Provider Obstetrics & Gynecology | DX: R93.89 Abnormal findings on diagnostic imaging of other specified body structures (principal) | CPT/HCPCS: 99212 ==

== ENCOUNTER 2024-10-21 10:39 | Outpatient (AMB) | payer MEDICARE, OTHER, SELFPAY ==
--- NOTE | 2024-10-21 10:46 | A.OFFVIS_ITS ---
Vital Signs 10/21/24 10:53 Height 5 ft 3 in Weight 126 lb 4 oz BMI 22.4 BP 185/80 H Blood Pressure Location Lt brachial Position Sitting Pulse 73 Intake Visit Reasons: yearly breast examination Intake Note: Patient is seen in office for yearly breast exam. 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 Anderson and former patient of Dr. Alberto presenting for a yearly follow-up breast examination.? She was diagnosed with ductal carcinoma in situ of the right breast and underwent a right breast lumpectomy in October 2012. She underwent a radial ellipse mastopexy involving the upper outer quadrant of the right breast.? She completed 5 years of tamoxifen in January 2018 and noted some hair loss due to the tamoxifen.? Her latest mammogram of 03/18/2024 revealed no mammographic evidence of malignancy (BI-RADS 2). Routine mammogram recommended in 1 year. She denies any current breast symptoms on either side. [facility] Medical History Dementia History of breast cancer COPD (chronic obstructive pulmonary disease) Vertigo Surgical History History of local excision of skin lesion (12/29/11) History of colonoscopy History of right breast biopsy (11/21/12) History of excision of lesion (12/04/08) History of hemorrhoidectomy History of lumpectomy (01/03/13) History of back surgery (02/2015) History of hip replacement (08/2019) Family History Sister History of breast cancer, Onset Age: 64 Maternal Aunt History of lung cancer Social History Household Members: Spouse Housing: Condominium Are you a primary farm or ranch animal caretaker to a significant other at home: No Do you presently have visiting nurse or other home services: No Alcohol intake: never Patient Tobacco Use Status: Never used Tobacco service: No Current occupational status: retired Review of Systems Const All systems reviewed & are unremarkable except as noted in HPI and below Card Denies chest pain, Denies palpitations and Denies dyspnea Resp Denies chest congestion, Denies cough, Denies dyspnea and Denies wheezing GI Denies abdominal pain, Denies bloating and Denies constipation Denies nipple discharge Musc Reports no additional complaints Skin/Breast Details: Skin lesion left breast as noted above in HPI Denies breast swelling, Denies breast skin changes, Denies breast pain, Denies breast mass, Denies change in breast shape and Denies nipple discharge Neuro Reports memory loss Psych Reports memory loss Endo Denies palpitations Earl/Lymph Denies lymphadenopathy Aller/Immun Denies wheezing Physical Exam Vital Signs: Last Vital Signs Pulse 73 10/21/24 10:53 BP 185/80 H 10/21/24 10:53 BMI result Body Mass Index 22.4 Const General: cooperative, healthy appearing, comfortable and no acute distress Neck Neck: Yes no lymphadenopathy, Yes trachea midline, Yes supple and Yes no JVD Chest Other: Right breast with a well-healed radial incision in the 1 o'clock position with no new skin change, nipple retraction, nipple discharge, palpable mass, or enlarged lymph nodes. Left breast reveals no palpable mass, skin change, nipple retraction, nipple discharge, enlarged lymph nodes. Skin lesion as noted below. Resp Effort & Inspection: normal respiratory effort, no cough, no stridor and not tachypneic Cardio Jugular venous distension: no JVD GI Inspection: Yes normal to inspection Skin General skin exam: no rashes or lesions noted Neuro Other: Mobility Assessment: 1. 3 meter assessment time (seconds) 8 2. Gait observations: slow tentative pace Extrem General: Yes no clubbing, cyanosis or edema Assessment & Plan Assessment & Plan (1) Ductal carcinoma in situ (DCIS) of right breast: Code(s): D05.11 - Intraductal carcinoma in situ of right breast Category: Surgical Plan: 89-year-old female patient returning for a 1 year follow-up examination after undergoing right breast lumpectomy in October 2012 for ductal carcinoma in situ. Examination today reveals no evidence of recurrent disease and her most recent bilateral mammograms 03/18/2024 revealed no mammographic evidence of malignancy is identified (BI-RADS 2). A 1 year follow-up mammogram is recommended. I recommended follow-up examination 1 year. She is welcome to call sooner for any new concerns. Coding Level of Care Code Est Pt Level 3 (21894) Diagnoses Ductal carcinoma in situ (DCIS) of right breast D05.11
[2024-10-21 10:53] VITALS: BP 185/80; PULSE 73; BMI 22.4
--- OUTSIDE RECORDS SUMMARY | 2024-10-21 12:50 | XMS_ITS | Patient Health Record ---
Author Organization [facility] Address [address] [place] [id number] Care Team Providers Care Geospatial Technician Name Role Phone Rodo Anderson MD Primary Care Provider Malikaa Olivier Meredith Unavailable [phone] Jair Elizabeth Unavailable Unavailable Allergies Allergen (clinical drug ingredient) Drug/Non Drug Allergy documented on EMR Reaction Allergy Type Onset Date Status tree pollen,dust , (uncoded) Unknown Allergy Active Reason For Referral No Information Medications Medication SIG (Take, Route, Fr equency, Duration) Notes Start Date End Date Status Lutein Active Caltrate 600 + D once a day Ac tive Amoxicillin 500 MG TAKE 4 TABLETS BY NM UT 1 HOUR BEFORE DENTAL PROCEDURE Oral for 3 Active Immunizations Vaccine Route Administration Date Status Comme nts Influenza Unknown 03/30/2020 Administered Social History Tobacco Use: Social History Observation Description Date Details (start date - stop date) Never Smoker NA - NA Tobacco Use/Smoking Question Answer Notes Patient is a nonsmoker Alcohol Screen Question Answer Notes Did you have a drink containing alcohol in the p ast year? No Points 0 Interpretation Negative Section Notes: Nonsmoker; nio sig alcohol Problems Problem Type SNOMED Code ICD Code Onset Dates Problem Status W/U Status Risk Notes Problem Constipation (28494591) Constipation (K59.00) Active confirmed Problem Diverticulitis (49125207) Diverticulitis (K57.92) Active confirmed Plan Of Treatment No Information Insurance Providers Payer Name Payer Address Payer Phone Subscriber Number Group Number Insured Name Patient Relationship to Insured Coverage Start Date Coverage End Date MEDICARE OF [facility] [address] [facility] [place] [id number] [phone] [id number] LULY ANGUIANO Self - patient is the insured [facility] [address] [place] [phone] [id number] ANNMARIE LULY Self - patient is the insured Medical (General) History Medical History History ICD Code Denies NV,DM,CVA,renal disease COPD Hx of multiple episodes of [...]
--- OUTSIDE RECORDS SUMMARY | 2024-10-21 12:50 | XMS_ITS | Continuity of Care Document ---
Author Organization [facility] Address [address] [place] [address], [address] [place] [address]- Care Team Providers Care Drilling Field Operator Name Role Phone Rodo Anderson MD Primary Care Physician Encounter [facility] Date(s): 09/10/24 - 10/10/24 [facility] [address] [facility] [place] [address]- Encounter Type: Triage Allergies, Adverse Reactions, Alerts No Known Medication Allergies Medications acetaminophen 325 mg oral tablet 650 Unknown, Oral, 0 Refill(s), Take 650 mg by mouth every 6 (six) hours as needed for mild pain., Refills 0, 10/08/24 11:34:00 AM EDT, Partial fill upon patient request if the prescription is for a schedule II opioid drug. Start Date: 10/08/24 Status: Ordered Repeat number: 1 amoxicillin 500 mg oral capsule 30 each, 0 Refill(s), TAKE 1 TABLET BY MOUTH 4 TIMES A DAY NEEDED FOR PAIN, 0 Refills, 10/08/24 11:34:00 AM EDT, Partial fill upon patient request if the prescription is for a schedule II opioid drug. Start Date: 10/08/24 Status: Ordered Repeat number: 1 amoxicillin 875 mg oral tablet 20 each, 0 Refill(s), TAKE 1 TABLET BY MOUTH TWICE A DAY TIL FINISHED, 0 Refills, 10/08/24 11:34:00 AM EDT, Partial fill upon patient request if the prescription is for a schedule II opioid drug. Start Date: 10/08/24 Status: Ordered Repeat number: 1 donepezil 10 mg oral tablet 90 each, 0 Refill(s), TAKE 1 TABLET BY MOUTH EVERY DAY AT BEDTIME, Refills 0, 10/08/24 11:34:00 AM EDT, Partial fill upon patient request if the prescription is for a schedule II opioid drug. Start Date: 10/08/24 Status: Ordered Repeat number: 1 gabapentin 100 mg oral capsule 90 each, 0 Refill(s), TAKE 1 CAPSULE BY MOUTH EVERYDAY AT BEDTIME, Refills 0, 10/08/24 11:34:00 AM EDT, Partial fill upon patient request if the prescription is for a schedule II opioid drug. Start Date: 10/08/24 Status: Ordered Repeat number: 1 ibuprofen 600 mg oral tablet 20 each, 0 Refill(s), TAKE 1 TABLET BY MOUTH 4 TIMES A DAY NEEDED FOR PAIN, Refills 0, 10/08/24 11:34:00 AM EDT, Partial fill upon patient request if the prescription is for a schedule II opioid drug. Start Date: 10/08/24 Status: Ordered Repeat number: 1 ipratropium nasal 21 mcg/inh spray 90 mL, 0 Refill(s), SPRAY 2 SPRAYS INTO EACH NOSTRIL EVERY 12 HOURS., 0 Refills, 10/08/24 11:34:00 AM EDT, Partial fill upon patient request if the prescription is for a schedule II opioid drug. Start Date: 10/08/24 Status: Ordered Repeat number: 1 loratadine 10 mg oral tablet 10 Unknown, Oral, 0 Refill(s), Take 10 mg by mouth daily as needed. Name brand, Refills 0, 10/08/24 11:34:00 AM EDT, Partial fill upon patient request if the prescription is for a schedule II opioid drug. Start Date: 10/08/24 Status: Ordered Repeat number: 1 memantine 10 mg oral tablet 180 each, 0 Refill(s), TAKE 1 TABLET BY MOUTH TWICE A DAY, 0 Refills, 10/08/24 11:34:00 AM EDT, Partial fill upon patient request if the prescription is for a schedule II opioid drug. Start Date: 10/08/24 Status: Ordered Repeat number: 1 memantine 5 mg oral tablet 180 each, 0 Refill(s), TAKE 1 TABLET BY MOUTH TWICE A DAY, 0 Refills, 10/08/24 11:34:00 AM EDT, Partial fill upon patient request if the prescription is for a schedule II opioid drug. Start Date: 10/08/24 Status: Ordered Repeat number: 1 Patient Care team information Care Team Personnel Name: Rodo Anderson MD Position: S Outreach Member Role: PCP Address: [address] [place] [address] Internal [place], [place] [address] Telecom: Care Team Related Persons Name: IRVINGFILIMELYSSA JUAN Insurance Providers Guarantor name: [employer] Health Plan Information #: 1 Payer: MEDICARE PART B OUTPT Member Number: NA Policy Number: NA Group Number: NA Health Plan Information #: 2 Payer: [facility] Member Number: NA Policy Number: NA Group Number: NA
== END 2024-10-21 11:05 | disposition home or self-care (01) ==
LOC: HO.HGS 10:40
PROVIDERS: PCP Internal Medicine; Visit Provider Surgery
DX: D05.11 Intraductal carcinoma in situ of right breast (principal)
CPT/HCPCS: 99213

== ENCOUNTER → 2024-10-21 10:39 | Outpatient (BNVA) | payer MEDICARE, OTHER, SELFPAY | PROVIDERS: PCP Internal Medicine; Visit Provider Surgery | DX: Z85.3 Personal history of malignant neoplasm of breast (principal) | CPT/HCPCS: 99212 ==

== ENCOUNTER 2025-01-16 08:08 | Outpatient (REF) | payer MEDICARE, OTHER, SELFPAY ==
[2025-01-16 08:28] LABS: MANUAL DIFF FLAG NO
[2025-01-16 08:50] LABS: Basophils Absolute Auto 0.1 X10*3/uL (0.0-0.2); Basophils Percent Auto 0.9 % (0-2); Eosinophils Absolute Auto 0.1 X10*3/uL (0.0-0.4); Hemoglobin 13.8 g/dl (12.0-16.0); Imm Gran Abs Auto 0.02 X10*3/uL (0.00-0.03); Imm Gran Pct Auto 0.3 % (0.0-0.4); Lymphocytes Absolute Auto 1.7 X10*3/uL (1.2-4.9); Lymphocytes Percent Auto 25.6 % (20-40); Mean Corpuscular HGB Conc 33.7 g/dl (31.0-35.0); Mean Corpuscular Hemoglobin 31.7 pg (27.0-33.0); Mean Platelet Volume 9.5 fL (9.4-12.3); Monocytes Absolute Auto 0.5 X10*3/uL (0.1-1.2); Monocytes Percent Auto 8.2 % (2-11); Neutrophils Absolute Auto 4.1 x10*3/uL (2.0-8.3); Platelet Count 194 X10*3/uL (160-400); Red Blood Count 4.36 X10*6/uL (4.20-5.50); Red Cell Distribution Width 13.5 % (11.0-16.0); White Blood Count 6.4 X10*3/uL (4.8-10.8)
[2025-01-16 10:32] LABS: Alanine Aminotransferase 20 U/L (0-31); Albumin Level 4.3 g/dL (3.5-5.0); Alkaline Phosphatase 97 U/L (39-117); Anion Gap 9 (12-20); Aspartate Amino Transferase 29 U/L (5-31); Bilirubin Total 0.7 mg/dL (0.0-1.0); Blood Urea Nitrogen 14 mg/dL (9-16); Calcium 9.5 mg/dL (8.4-10.2); Carbon Dioxide 31 mmol/L (22-29); Chloride 105 mmol/L (96-108); Estimated Glomerular Filt Rate 58; Glucose Random 82 mg/dL (60-115); Potassium 4.4 mmol/L (3.3-5.1); Sodium 141 mmol/L (135-145); Total Protein 7.1 g/dL (6.5-8.0)
== END 2025-01-16 08:09 | disposition home or self-care (01) ==
LOC: HO.LAB 08:08
PROVIDERS: Visit Provider Internal Medicine
DX: G30.9 Alzheimer's disease, unspecified (principal); F02.B0 Dementia in other diseases classified elsewhere, moderate, without behavioral disturbance, psychotic disturbance, mood disturbance, and anxiety
CPT/HCPCS: 36415; 80053; 85025